=== PATIENT | male | born 1955 | race Two or more races ===

== ENCOUNTER 2018-09-20 17:44 | Inpatient (IN) | payer MEDICAID ==
[~2018-09-20] VITALS: Ht 198.1 cm; Wt 104.8 kg
[2018-09-20] MEDS ORDERED: Sodium Chloride 3,300 ML IVLG ONE (18:00)
[2018-09-20 18:09] VITALS: BP 121/63
[2018-09-20 18:38] LABS: ANION GAP 14 mmol/L (5-15); BLOOD UREA NITROGEN 14 mg/dL (7-18); CARBON DIOXIDE 19 MMOL/L (21-32); CHLORIDE 97 MMOL/L (98-107); POTASSIUM 4.2 MMOL/L (3.5-5.1); SODIUM 130 MMOL/L (136-145)
[2018-09-20 18:46] LABS: HEMATOCRIT 41.1 % (42.0-52.0); HEMOGLOBIN 14.2 G/DL (14.2-18.0); MEAN CORPUSCULAR VOLUME 92 FL (80-99); PLATELET COUNT 80 K/UL (150-450); RED BLOOD COUNT 4.49 M/UL (4.70-6.10); RED CELL DISTRIBUTION WIDTH 12.5 % (11.6-14.8); WHITE BLOOD COUNT 12.8 K/UL (4.8-10.8)
--- NOTE | 2018-09-20 18:51 | Emergency Room Report ---
History of Present Illness General Chief Complaint: Generalized Weakness Source: Patient, EMS Present Illness HPI This patient states that for the past 3 days he has had diarrhea. He also has a history of cirrhosis. He states that this was secondary to a history of alcohol abuse but he no longer drinks alcohol. He denies travel. He denies pain. He denies fever or chills. He states he has also had generalized weakness. He denies chest pain or shortness of breath. He has no other complaints. Allergies: Coded Allergies: No Known Allergies (Unverified , 09/20/18) Patient History Past Medical History: see triage record, DM, other - cirrhosis Social History: Denies: smoking, alcohol use, drug use Reviewed Nursing Documentation: PMH: Agreed; PSxH: Agreed Nursing Documentation-PMH Past Medical History: No History, Except For Hx Diabetes: Yes Review of Systems All Other Systems: negative except mentioned in HPI Physical Exam Vital Signs Date Time Temp Pulse Resp B/P (MAP) Pulse Ox O2 Delivery O2 Flow Rate FiO2 09/20/18 17:41 100.0 96 16 126/70 (88) 98 Room Air Sp02 EP Interpretation: reviewed, normal General Appearance: no apparent distress, alert, GCS 15, non-toxic Head: normocephalic, atraumatic Eyes: bilateral eye normal inspection, bilateral eye PERRL ENT: hearing grossly normal, normal pharynx, no angioedema, normal voice Neck: full range of motion, supple/symm/no masses Respiratory: chest non-tender, lungs clear, normal breath sounds, no respiratory distress, no retraction, no accessory muscle use, speaking full sentences Cardiovascular #1: no edema, tachycardia Gastrointestinal: normal bowel sounds, non tender, soft, non-distended, no guarding, no rebound Rectal: deferred Musculoskeletal: back normal, gait/station normal, normal range of motion, non- tender Neurologic: alert, oriented x3, responsive, motor strength/tone normal, sensory intact, speech normal Psychiatric: judgement/insight normal, memory normal, mood/affect normal, no suicidal/homicidal ideation Skin: normal color, no rash, warm/dry, well hydrated Medical Decision Making Diagnostic Impression: Primary Impression: Gastroenteritis Additional Impressions: Dehydration Fever Lactic acid acidosis Hyponatremia ER Course This patient presents with recurrent diarrhea and generalized weakness. At baseline he is chronically ill with liver cirrhosis and is high risk for serious bacterial infection. He does not localize to his abdomen and is not tender so I have a low suspicion for spontaneous bacterial peritonitis. He had a low-grade fever with a temp of 100. He was given aggressive IV fluid resuscitation and broad-spectrum antibiotics and admitted for further evaluation and treatment by internal medicine. Laboratory Tests Test 09/20/18 18:05 09/20/18 18:35 Sodium Level 130 MMOL/L (136-145) L Potassium Level 4.2 MMOL/L (3.5-5.1) Chloride Level 97 MMOL/L (98-107) L Carbon Dioxide Level 19 MMOL/L (21-32) L Anion Gap 14 mmol/L (5-15) Blood Urea Nitrogen 14 mg/dL (7-18) Creatinine 1.0 MG/DL (0.55-1.30) Estimate Glomerular Filtration Rate > 60 mL/min (>60) Glucose Level 110 MG/DL (74-106) H Lactic Acid Level 4.10 mmol/L (0.4-2.0) H Calcium Level 9.0 MG/DL (8.5-10.1) Total Bilirubin 4.0 MG/DL (0.2-1.0) H Direct Bilirubin 1.2 MG/DL (0.0-0.3) H Aspartate Amino Transferase (AST) 192 U/L (15-37) H Alanine Aminotransferase (ALT) 192 U/L (12-78) H Alkaline Phosphatase 93 U/L (46-116) Total Creatine Kinase 251 U/L (26-308) Creatine Kinase MB 1.5 NG/ML (0.0-3.6) Creatine Kinase MB Relative Index 0.5 Troponin I 0.003 ng/mL (0.000-0.056) Total Protein 7.9 G/DL (6.4-8.2) Albumin 3.1 G/DL (3.4-5.0) L Globulin 4.8 g/dL Albumin/Globulin Ratio 0.6 (1.0-2.7) L White Blood Count 12.8 K/UL (4.8-10.8) H Red Blood Count 4.49 M/UL (4.70-6.10) L Hemoglobin 14.2 G/DL (14.2-18.0) Hematocrit 41.1 % (42.0-52.0) L Mean Corpuscular Volume 92 FL (80-99) Mean Corpuscular Hemoglobin 31.7 PG (27.0-31.0) H Mean Corpuscular Hemoglobin Concent 34.6 G/DL (32.0-36.0) Red Cell Distribution Width 12.5 % (11.6-14.8) Platelet Count 80 K/UL (150-450) L Mean Platelet Volume 8.1 FL (6.5-10.1) Neutrophils (%) (Auto) % (45.0-75.0) Lymphocytes (%) (Auto) % (20.0-45.0) Monocytes (%) (Auto) % (1.0-10.0) Eosinophils (%) (Auto) % (0.0-3.0) Basophils (%) (Auto) % (0.0-2.0) Neutrophils % (Manual) Pending Lymphocytes % (Manual) Pending Platelet Estimate Pending Platelet Morphology Pending Microbiology Date/Time Source Procedure Growth Status 09/20/18 18:05 Nasal Nares - Final Complete 09/20/18 18:05 Nasal Nares - Final Complete EKG Diagnostic Results Rate: normal Rhythm: NSR ST Segments: no acute changes Rhythm Strip Diag. Results EP Interpretation: yes Rate: 100's Rhythm: no PVC's, no ectopy, other - S.tachycardia Chest X-Ray Diagnostic Results Chest X-Ray Diagnostic Results : Chest X-Ray Ordered: Yes # of Views/Limited/Complete: 1 View Indication: Other EP Interpretation: Yes Interpretation: no consolidation, no effusion, no pneumothorax, no acute cardiopulmonary disease Impression: No acute disease Last Vital Signs Date Time Temp Pulse Resp B/P (MAP) Pulse Ox O2 Delivery O2 Flow Rate FiO2 09/20/18 18:09 101.8 97 24 121/63 96 Room Air Disposition: ADMITTED INPATIENT Condition: Serious Referrals: NON PHYSICIAN (PCP) Chikis Barrera DO Sep 20, 2018 18:51
[2018-09-20 18:52] LABS: ALANINE AMINOTRANSFERASE 192 U/L (12-78); ALBUMIN 3.1 G/DL (3.4-5.0); ALBUMIN/GLOBULIN RATIO 0.6 (1.0-2.7); ALKALINE PHOSPHATASE 93 U/L (46-116); ASPARTATE AMINO TRANSFERASE 192 U/L (15-37); CKMB 1.5 NG/ML (0.0-3.6); CREATINE KINASE 251 U/L (26-308)
[2018-09-20 18:53] LABS: BILIRUBIN,DIRECT 1.2 MG/DL (0.0-0.3)
[2018-09-20] MEDS ORDERED: Cefepime HCl 2 GM in NS 110 ML IV ONE (19:30)
[2018-09-20 20:02] VITALS: BP 128/82
[2018-09-20 20:04] LABS: APPEARANCE,URINE CLEAR; BILIRUBIN, URINE 2+ (NEGATIVE); COLOR,URINE BROWN; GLUCOSE, URINE (UA) NEGATIVE (NEGATIVE); KETONES,URINE 2+ (NEGATIVE); LEUKOCYTE ESTERASE ,URINE 1+ (NEGATIVE); NITRITE,URINE POSITIVE (NEGATIVE); PH,URINE 5 (4.5-8.0); PROTEIN,URINE 1+ (NEGATIVE); UROBILINOGEN,URINE 4 MG/DL (0.0-1.0)
[2018-09-20 21:29] VITALS: BP 130/78
[2018-09-20 23:00] VITALS: BP 139/72
[2018-09-20] MEDS: Vancomycin 1.25gm Premix 275 ML IVPB SCH (23:11)
[2018-09-21] VITALS: BP 139/72
[2018-09-21 04:00] VITALS: BP 109/67
[2018-09-21 05:39] LABS: HEMOGLOBIN 12.9 G/DL (14.2-18.0); MEAN CORPUSCULAR VOLUME 93 FL (80-99); PLATELET COUNT 58 K/UL (150-450); RED BLOOD COUNT 3.97 M/UL (4.70-6.10); RED CELL DISTRIBUTION WIDTH 12.4 % (11.6-14.8); WHITE BLOOD COUNT 8.1 K/UL (4.8-10.8)
[2018-09-21 06:22] LABS: ANION GAP 10 mmol/L (5-15); BLOOD UREA NITROGEN 15 mg/dL (7-18); CALCIUM 8.1 MG/DL (8.5-10.1); CARBON DIOXIDE 21 MMOL/L (21-32); CHLORIDE 102 MMOL/L (98-107); CREATININE 0.8 MG/DL (0.55-1.30); POTASSIUM 3.1 MMOL/L (3.5-5.1); SODIUM 133 MMOL/L (136-145)
[2018-09-21 08:00] VITALS: BP 107/63
--- NOTE | 2018-09-21 08:30 | History and Physical Report ---
DATE OF ADMISSION: 09/20/2018 REASON FOR ADMISSION: 1. Diarrhea. 2. Sepsis. HISTORY OF PRESENT ILLNESS: The patient is a 63-year-old gentleman, who presented to the emergency room complaining of three to five days of diarrhea, which had progressively gotten worsened. The patient does have a history of known cirrhosis secondary to alcohol abuse. The patient denies drinking any alcohol. States he has been feeling weak and tired and had recent infection causing his diarrhea and was treated, but then has since returned. ALLERGIES: No known drug allergies. PAST MEDICAL HISTORY: 1. Cirrhosis. 2. Questionable diabetes. 3. Diarrhea, infectious in nature. SOCIAL HISTORY: The patient used to drink alcohol. Denies any current alcohol, tobacco, or illicit drug use. FAMILY HISTORY: Positive for diabetes and hypertension. REVIEW OF SYSTEMS: NEUROLOGIC: The patient denies headache, change in vision, syncope or presyncopal episodes. CARDIOVASCULAR: No current chest pain, palpitations, or angina. PULMONARY: No difficulty breathing, productive cough sputum. GASTROINTESTINAL/GENITOURINARY: The patient complaining of diarrhea, progressive in nature. No nausea or vomiting. ENDOCRINOLOGY: No night sweats, fevers, or chills. LABORATORY DATA: Laboratories dated September 21, 2018, sodium 133, potassium 3.1, creatinine 0.8. AST and ALT 192 respectively for each. Troponin 0. White cell count 12.8, hemoglobin 12.9, and platelet count 58. PHYSICAL EXAMINATION: VITAL SIGNS: Blood pressure 129/57, respiratory rate 20, 94% oxygen saturation on room air, pulse 94, and temperature 99.0. GENERAL: The patient awake, alert, in no overt distress. HEENT: Extraocular muscles intact. No lymphadenopathy noted. CARDIOVASCULAR: S1, S2. No rubs or gallops. PULMONARY: Clear to auscultation bilaterally. No rales, rhonchi or wheezes. ABDOMEN: Distended, nontender. Positive fluid . EXTREMITIES: 1+ edema. ASSESSMENT AND PLAN: 1. Hyponatremia secondary to cirrhosis, mild in nature. Continue IV fluids, has improved to 133. 2. Sepsis with elevated WBC, could be an infectious diarrhea. C. diff has been ordered. Antibiotics will be given. An Infectious Disease consult for further evaluation and management. 3. Hypokalemia. We will replace IV secondary to diarrhea. 4. Volume depletion. We will continue IV fluids. 5. DVT prophylaxis with SCDs. Fidel Segundo MD DR: LAKHWINDER JOB#: [id number] CC:
[2018-09-21] MEDS ORDERED: Thiamine 100mg tab ORAL SCH (09:00)
--- NOTE | 2018-09-21 10:24 | GI Initial Consult Note ---
History of Present Illness General Date patient seen: Sep 21, 2018 Time patient seen: 10:16 Reason for Hospitalization: Generalized Weakness Referring physician: BRANDON Reason for Consultation: Diarrhea Present Illness HPI This patient states that for the past 3 days he has had diarrhea. He also has a history of cirrhosis. He states that this was secondary to a history of alcohol abuse but he no longer drinks alcohol. He denies travel. He denies pain. He denies fever or chills. He states he has also had generalized weakness. He denies chest pain or shortness of breath. He has no other complaints. GI consulted for reported diarrhea. Patient seen, awake alert and oriented x4 no apparent distress with no active signs or symptoms of nausea vomiting. The patient reported severe diarrhea for approximately 3 to 4 days. The patient denied any travel or recent changes in dietary habits. Has a history of alcoholic cirrhosis, his last drink was over 2 years ago. Aside from the most recent episode of diarrhea, the patient reported diarrhea previous times as well. In addition, the patient did report occasional melena. He states his last colonoscopy was only 2 weeks ago which was done at [facility] with unremarkable findings. The patient states he has no history of upper endoscopy. Labs reviewed; no leukocytosis, hemoglobin of 12.9, abnormal LFTs as noted. Med list reviewed/reconciled: Yes Allergies: Coded Allergies: No Known Allergies (Unverified , 09/20/18) Patient History History Provided By: Patient, Medical Record PMH Narrative Past Medical History: see triage record, DM, other - cirrhosis Social History: Denies: smoking, alcohol use, drug use Reviewed Nursing Documentation: PMH: Agreed; PSxH: Agreed Nursing Documentation-PM Past Medical History: No History, Except For Hx Diabetes: Yes Social History: Reports: alcohol use - Prior history Review of Systems All Other Systems: negative except mentioned in HPI Physical Exam Vital Signs Date Time Temp Pulse Resp B/P (MAP) Pulse Ox O2 Delivery O2 Flow Rate FiO2 09/20/18 17:41 100.0 96 16 126/70 (88) 98 Room Air Sp02 EP Interpretation: reviewed, normal Labs Laboratory Tests Test 09/20/18 18:05 09/20/18 18:35 09/20/18 19:30 09/21/18 03:15 Sodium Level 130 MMOL/L (136-145) L 133 MMOL/L (136-145) L Potassium Level 4.2 MMOL/L (3.5-5.1) 3.1 MMOL/L (3.5-5.1) L Chloride Level 97 MMOL/L (98-107) L 102 MMOL/L (98-107) Carbon Dioxide Level 19 MMOL/L (21-32) L 21 MMOL/L (21-32) Anion Gap 14 mmol/L (5-15) 10 mmol/L (5-15) Blood Urea Nitrogen 14 mg/dL (7-18) 15 mg/dL (7-18) Creatinine 1.0 MG/DL (0.55-1.30) 0.8 MG/DL (0.55-1.30) Estimat Glomerular Filtration Rate > 60 mL/min (>60) > 60 mL/min (>60) Glucose Level 110 MG/DL (74-106) H 133 MG/DL (74-106) H Lactic Acid Level 4.10 mmol/L (0.4-2.0) H 3.50 mmol/L (0.66-2.22) H Calcium Level 9.0 MG/DL (8.5-10.1) 8.1 MG/DL (8.5-10.1) L Total Bilirubin 4.0 MG/DL (0.2-1.0) H Direct Bilirubin 1.2 MG/DL (0.0-0.3) H Aspartate Amino Transf (AST/SGOT) 192 U/L (15-37) H Alanine Aminotransferase (ALT/SGPT) 192 U/L (12-78) H Alkaline Phosphatase 93 U/L (46-116) Total Creatine Kinase 251 U/L (26-308) Creatine Kinase MB 1.5 NG/ML (0.0-3.6) Creatine Kinase MB Relative Index 0.5 Troponin I 0.003 ng/mL (0.000-0.056) Total Protein 7.9 G/DL (6.4-8.2) Albumin 3.1 G/DL (3.4-5.0) L Globulin 4.8 g/dL Albumin/Globulin Ratio 0.6 (1.0-2.7) L White Blood Count 12.8 K/UL (4.8-10.8) H 8.1 K/UL (4.8-10.8) Red Blood Count 4.49 M/UL (4.70-6.10) L 3.97 M/UL (4.70-6.10) L Hemoglobin 14.2 G/DL (14.2-18.0) 12.9 G/DL (14.2-18.0) L Hematocrit 41.1 % (42.0-52.0) L 37.0 % (42.0-52.0) L Mean Corpuscular Volume 92 FL (80-99) 93 FL (80-99) Mean Corpuscular Hemoglobin 31.7 PG (27.0-31.0) H 32.4 PG (27.0-31.0) H Mean Corpuscular Hemoglobin Concent 34.6 G/DL (32.0-36.0) 34.8 G/DL (32.0-36.0) Red Cell Distribution Width 12.5 % (11.6-14.8) 12.4 % (11.6-14.8) Platelet Count 80 K/UL (150-450) L 58 K/UL (150-450) L Mean Platelet Volume 8.1 FL (6.5-10.1) 11.3 FL (6.5-10.1) H Neutrophils (%) (Auto) % (45.0-75.0) % (45.0-75.0) Lymphocytes (%) (Auto) % (20.0-45.0) % (20.0-45.0) Monocytes (%) (Auto) % (1.0-10.0) % (1.0-10.0) Eosinophils (%) (Auto) % (0.0-3.0) % (0.0-3.0) Basophils (%) (Auto) % (0.0-2.0) % (0.0-2.0) Differential Total Cells Counted 100 100 Neutrophils % (Manual) 80 % (45-75) H 75 % (45-75) Lymphocytes % (Manual) 5 % (20-45) L 4 % (20-45) L Monocytes % (Manual) 13 % (1-10) H 8 % (1-10) Eosinophils % (Manual) 1 % (0-3) 1 % (0-3) Basophils % (Manual) 0 % (0-2) 0 % (0-2) Band Neutrophils 1 % (0-8) 12 % (0-8) H Platelet Estimate Decreased L Decreased L Platelet Morphology Normal Normal Red Blood Cell Morphology Normal Normal Urine Color Brown Urine Appearance Clear Urine pH 5 (4.5-8.0) Urine Specific [place] 1.025 (1.005-1.035) Urine Protein 1+ (NEGATIVE) H Urine Glucose (UA) Negative (NEGATIVE) Urine Ketones 2+ (NEGATIVE) H Urine Blood 2+ (NEGATIVE) H Urine Nitrite Positive (NEGATIVE) H Urine Bilirubin 2+ (NEGATIVE) H Urine Ictotest Negative (NEGATIVE) Urine Urobilinogen 4 MG/DL (0.0-1.0) H Urine Leukocyte Esterase 1+ (NEGATIVE) H Urine RBC 5-10 /HPF (0 - 0) H Urine WBC 2-4 /HPF (0 - 0) Urine Squamous Epithelial Cells Few /LPF (NONE/OCC) Urine Bacteria Few /HPF (NONE) Urine Hyaline Casts 30-40 /LPF (NONE) H Urine Mucus Many /LPF (NONE/OCC) H General Appearance: well appearing, no apparent distress, alert Head: normocephalic EENT: PERRL/EOMI, normal ENT inspection Neck: supple Respiratory: normal breath sounds, no respiratory distress Cardiovascular: normal rate Gastrointestinal: normal inspection, non tender, soft, normal bowel sounds, non -distended, other - Abdomen is soft, nondistended, nontender Rectal: deferred Genitourinary: deferred Musculoskeletal: normal inspection, back normal Neurologic: normal inspection, alert, oriented x3, responsive Psychiatric: normal inspection, judgement/insight normal, memory normal Skin: normal inspection, normal color, no rash, warm/dry, palpation normal, well hydrated Lymphatic: normal inspection, no adenopathy Current Medications Current Medications Medications (Trade) Dose Ordered Sig/Kaylah Route PRN Reason Start Time Stop Time Status Last Admin Dose Admin Dextrose (Dextrose 50%) 25 ml Q30M PRN IV Hypoglycemia 09/20/18 22:15 10/20/18 22:14 Dextrose (Dextrose 50%) 50 ml Q30M PRN IV Hypoglycemia 09/20/18 22:15 10/20/18 22:14 Famotidine (Pepcid) 40 mg DAILY ORAL 09/21/18 09:00 10/21/18 08:59 09/21/18 09:22 Folic Acid (Folate) 1 mg DAILY ORAL 09/21/18 09:00 10/21/18 08:59 09/21/18 09:22 Ondansetron HCl (Zofran) 4 mg Q6H PRN IVP Nausea & Vomiting 09/20/18 22:15 10/20/18 22:14 09/21/18 00:51 Sodium Chloride 1,000 ml @ 75 mls/hr [id number] IV 09/20/18 22:15 10/20/18 22:14 09/20/18 22:58 Thiamine HCl (Vitamin B1) 100 mg DAILY ORAL 09/21/18 09:00 10/21/18 08:59 09/21/18 09:21 Vancomycin HCl/ Dextrose 275 ml @ 183.333 mls/hr Q12H IVPB 09/20/18 23:00 09/25/18 22:59 09/20/18 23:11 GI: Plan Problems: (1) Melena (2) Lactic acid acidosis (3) Hyponatremia (4) Gastroenteritis (5) Fever (6) Dehydration (7) Sepsis Plan History of cirrhosis Recent colonoscopy within 2 weeks EGD scheduled for tomorrow. - NPO @ NH. - hold all blood thinners Stool studies to rule out infectious diarrhea Prophylactic antibiotics IV p.o. hydration plus electrolyte correction Obtain abdominal ultrasound Hepatitis panel OB stool to rule out GI bleed Follow labs Discussed with Dr. Wall. Thank you for this patient referral, we will follow. The patient was seen and examined at bedside and all new and available data was reviewed in the patients chart. I agree with the above findings, impression and plan. (Patient seen earlier today. Signature stamp does not reflect patient encounter time.). - MD Rhiannon JeronimoHavasu Regional Medical CenterNitesh INSTRUMENT REPAIR SUPERVISOR Sep 21, 2018 10:24
[2018-09-21] MEDS: Vancomycin 1.25gm Premix 275 ML IVPB SCH ×2 (11:25→21:13)
[2018-09-21 12:00] VITALS: BP 108/63
--- NOTE | 2018-09-21 12:10 | Diagnostic Imaging Report ---
Indication: Dyspnea Comparison: None A single view chest radiograph was obtained. Findings: Mild pulmonary vascular congestion suspected. Heart is normal size. Bones are unremarkable. No pleural effusion seen. IMPRESSION: Prominent vascularity. Suspect mild CHF. Correlate clinically
[2018-09-21] MEDS ORDERED: Vancomycin oral 125mg/2.5ml ORAL SCH (13:00)
[2018-09-21] MEDS ORDERED: metroNIDAZOLE 500mg tab ORAL SCH (14:00)
--- NOTE | 2018-09-21 14:01 | Infectious Diseases Prog Note ---
Assessment/Plan Assessment/Plan Full consult to follow: sepsis ? infectious diarrhea leukocytosis fevers vancomycin and ceftriaxone check cultures and stool studies monitor labs IVF GI f/u thank you Subjective Allergies: Coded Allergies: No Known Allergies (Unverified , 09/20/18) Objective Vital Signs Last 24 Hour Vital Signs Date Time Temp Pulse Resp B/P (MAP) Pulse Ox O2 Delivery O2 Flow Rate FiO2 09/21/18 12:00 Room Air 09/21/18 12:00 100.8 85 24 108/63 (78) 96 09/21/18 08:00 94 09/21/18 08:00 98.1 93 26 107/63 (78) 93 09/21/18 08:00 Room Air 09/21/18 04:00 Room Air 09/21/18 04:00 94 09/21/18 04:00 99.0 90 20 109/67 (81) 94 09/21/18 00:00 99.0 93 24 139/72 (94) 97 09/21/18 00:00 91 09/21/18 00:00 91 09/21/18 00:00 Room Air 09/20/18 23:00 Room Air 09/20/18 23:00 99.0 93 24 139/72 (94) 97 09/20/18 23:00 Room Air 09/20/18 23:00 Room Air 09/20/18 22:35 99.7 82 18 130/78 99 Room Air 09/20/18 22:19 99.7 09/20/18 21:29 99.7 82 18 130/78 99 Room Air 09/20/18 20:02 101.1 101 28 128/82 99 Room Air 09/20/18 18:09 101.8 97 24 121/63 96 Room Air 09/20/18 18:09 97 24 Room Air 09/20/18 17:41 100.0 96 16 126/70 (88) 98 Room Air Height (Feet): 6 Height (Inches): 0.00 Weight (Pounds): 230 Microbiology Date/Time Source Procedure Growth Status 09/20/18 18:05 Nasal Nares - Final Complete 09/20/18 18:05 Nasal Nares - Final Complete Laboratory Tests Test 09/20/18 18:05 09/20/18 18:35 09/20/18 19:30 09/21/18 03:15 Sodium Level 130 MMOL/L (136-145) L 133 MMOL/L (136-145) L Potassium Level 4.2 MMOL/L (3.5-5.1) 3.1 MMOL/L (3.5-5.1) L Chloride Level 97 MMOL/L (98-107) L 102 MMOL/L (98-107) Carbon Dioxide Level 19 MMOL/L (21-32) L 21 MMOL/L (21-32) Anion Gap 14 mmol/L (5-15) 10 mmol/L (5-15) Blood Urea Nitrogen 14 mg/dL (7-18) 15 mg/dL (7-18) Creatinine 1.0 MG/DL (0.55-1.30) 0.8 MG/DL (0.55-1.30) Estimat Glomerular Filtration Rate > 60 mL/min (>60) > 60 mL/min (>60) Glucose Level 110 MG/DL (74-106) H 133 MG/DL (74-106) H Lactic Acid Level 4.10 mmol/L (0.4-2.0) H 3.50 mmol/L (0.66-2.22) H Calcium Level 9.0 MG/DL (8.5-10.1) 8.1 MG/DL (8.5-10.1) L Total Bilirubin 4.0 MG/DL (0.2-1.0) H Direct Bilirubin 1.2 MG/DL (0.0-0.3) H Aspartate Amino Transf (AST/SGOT) 192 U/L (15-37) H Alanine Aminotransferase (ALT/SGPT) 192 U/L (12-78) H Alkaline Phosphatase 93 U/L (46-116) Total Creatine Kinase 251 U/L (26-308) Creatine Kinase MB 1.5 NG/ML (0.0-3.6) Creatine Kinase MB Relative Index 0.5 Troponin I 0.003 ng/mL (0.000-0.056) Total Protein 7.9 G/DL (6.4-8.2) Albumin 3.1 G/DL (3.4-5.0) L Globulin 4.8 g/dL Albumin/Globulin Ratio 0.6 (1.0-2.7) L White Blood Count 12.8 K/UL (4.8-10.8) H 8.1 K/UL (4.8-10.8) Red Blood Count 4.49 M/UL (4.70-6.10) L 3.97 M/UL (4.70-6.10) L Hemoglobin 14.2 G/DL (14.2-18.0) 12.9 G/DL (14.2-18.0) L Hematocrit 41.1 % (42.0-52.0) L 37.0 % (42.0-52.0) L Mean Corpuscular Volume 92 FL (80-99) 93 FL (80-99) Mean Corpuscular Hemoglobin 31.7 PG (27.0-31.0) H 32.4 PG (27.0-31.0) H Mean Corpuscular Hemoglobin Concent 34.6 G/DL (32.0-36.0) 34.8 G/DL (32.0-36.0) Red Cell Distribution Width 12.5 % (11.6-14.8) 12.4 % (11.6-14.8) Platelet Count 80 K/UL (150-450) L 58 K/UL (150-450) L Mean Platelet Volume 8.1 FL (6.5-10.1) 11.3 FL (6.5-10.1) H Neutrophils (%) (Auto) % (45.0-75.0) % (45.0-75.0) Lymphocytes (%) (Auto) % (20.0-45.0) % (20.0-45.0) Monocytes (%) (Auto) % (1.0-10.0) % (1.0-10.0) Eosinophils (%) (Auto) % (0.0-3.0) % (0.0-3.0) Basophils (%) (Auto) % (0.0-2.0) % (0.0-2.0) Differential Total Cells Counted 100 100 Neutrophils % (Manual) 80 % (45-75) H 75 % (45-75) Lymphocytes % (Manual) 5 % (20-45) L 4 % (20-45) L Monocytes % (Manual) 13 % (1-10) H 8 % (1-10) Eosinophils % (Manual) 1 % (0-3) 1 % (0-3) Basophils % (Manual) 0 % (0-2) 0 % (0-2) Band Neutrophils 1 % (0-8) 12 % (0-8) H Platelet Estimate Decreased L Decreased L Platelet Morphology Normal Normal Red Blood Cell Morphology Normal Normal Urine Color Brown Urine Appearance Clear Urine pH 5 (4.5-8.0) Urine Specific [place] 1.025 (1.005-1.035) Urine Protein 1+ (NEGATIVE) H Urine Glucose (UA) Negative (NEGATIVE) Urine Ketones 2+ (NEGATIVE) H Urine Blood 2+ (NEGATIVE) H Urine Nitrite Positive (NEGATIVE) H Urine Bilirubin 2+ (NEGATIVE) H Urine Ictotest Negative (NEGATIVE) Urine Urobilinogen 4 MG/DL (0.0-1.0) H Urine Leukocyte Esterase 1+ (NEGATIVE) H Urine RBC 5-10 /HPF (0 - 0) H Urine WBC 2-4 /HPF (0 - 0) Urine Squamous Epithelial Cells Few /LPF (NONE/OCC) Urine Bacteria Few /HPF (NONE) Urine Hyaline Casts 30-40 /LPF (NONE) H Urine Mucus Many /LPF (NONE/OCC) H Current Medications Medications (Trade) Dose Ordered Sig/Kaylah Route PRN Reason Start Time Stop Time Status Last Admin Dose Admin Dextrose (Dextrose 50%) 25 ml Q30M PRN IV Hypoglycemia 09/20/18 22:15 10/20/18 22:14 Dextrose (Dextrose 50%) 50 ml Q30M PRN IV Hypoglycemia 09/20/18 22:15 10/20/18 22:14 Famotidine (Pepcid) 40 mg DAILY ORAL 09/21/18 09:00 10/21/18 08:59 09/21/18 09:22 Folic Acid (Folate) 1 mg DAILY ORAL 09/21/18 09:00 10/21/18 08:59 09/21/18 09:22 Ondansetron HCl (Zofran) 4 mg Q6H PRN IVP Nausea & Vomiting 09/20/18 22:15 10/20/18 22:14 09/21/18 00:51 Sodium Chloride 1,000 ml @ 75 mls/hr [id number] IV 09/20/18 22:15 10/20/18 22:14 09/21/18 13:01 Thiamine HCl (Vitamin B1) 100 mg DAILY ORAL 09/21/18 09:00 10/21/18 08:59 09/21/18 09:21 Vancomycin HCl (Firvanq) 125 mg FOUR TIMES A DAY ORAL 09/21/18 13:00 09/28/18 12:59 09/21/18 13:01 Vancomycin HCl/ Dextrose 275 ml @ 183.333 mls/hr Q12H IVPB 09/20/18 23:00 09/25/18 22:59 09/21/18 11:25 Lisha Aguirre MD Sep 21, 2018 14:01
--- NOTE | 2018-09-21 15:00 | Cardiology Report ---
APPROVED REPORT EKG Measurement Heart [id number] Normal sinus rhythm Normal ECG
[2018-09-21] MEDS ORDERED: cefTRIAXone 1 GM in D5W 50 ML IVPB SCH (15:30)
[2018-09-21 17:00] VITALS: BP 118/70
[2018-09-21] MEDS: Vancomycin oral 125mg/2.5ml ORAL SCH ×2 (17:55→21:12)
--- NOTE | 2018-09-21 18:45 | History and Physical Report ---
DATE OF ADMISSION: 09/20/2018 HISTORY OF PRESENT ILLNESS: This is a 63-year-old male with a history of liver cirrhosis. He had been discharged from [facility] recently with lactulose for his liver cirrhosis. He now presents with diarrhea. The patient states that the diarrheal frequency has suddenly increased. He reports taking lactulose at home. PAST HISTORY: Liver cirrhosis and questionable diabetes. HOME MEDICATIONS: Lactulose. ALLERGIES: None. REVIEW OF SYSTEMS: Denies any headaches, hematemesis, melena, or hematochezia. PHYSICAL EXAMINATION: GENERAL: Reveals a 63-year-old male. VITAL SIGNS: There is initial blood pressure of 109/60 and heart rate 74. He has been afebrile. HEENT: Unremarkable. LUNGS: Clear breath sounds bilaterally. ABDOMEN: Soft. LABORATORY DATA: Lab testing shows hemoglobin 12.9 now, white cells 8100, and platelet count 58,00. Creatinine is 0.8. Sodium is 133 and potassium 3.1. Lactic acid 4.1 now 3.5. Calcium is 8.1. AST and ALT are both elevated. Albumin 3.1. Urinalysis shows nitrites and few wbc's. Imaging studies none. IMPRESSION: 1. Hypoalbuminemia. 2. Malnutrition. 3. Liver cirrhosis. 4. Diarrhea. 5. Diabetes, questionable. DISCUSSION: Admitted to the hospital. We will start empiric antibiotics. I will also start oral vancomycin. Consult GI. Intravenous fluids. Discontinue lactulose. Check stool for culture and C. diff. We will follow carefully. Rajesh Myers M.D. DR: JUSTINE JOB#: [id number] CC:
[2018-09-21 20:00] VITALS: BP 126/66
[2018-09-21] MEDS: metroNIDAZOLE 500mg tab ORAL SCH (21:12)
[2018-09-22] VITALS (9 sets, daily range): BP systolic 126–151; BP diastolic 70–89
[2018-09-22] MEDS: metroNIDAZOLE 500mg tab ORAL SCH ×3 (06:22→21:36)
[2018-09-22] MEDS ORDERED: Propofol 200mg/20ml IV ONE (07:00)
[2018-09-22] MEDS ORDERED: Lidocaine 1% MPF 10mg/ml 5ml ONE (07:00)
--- NOTE | 2018-09-22 07:02 | Nephrology Progress Note ---
Assessment/Plan Assessment/Plan: A/P 1) Hyponatremia- due to cirrhosis - stable, AM labs pending 2) Hypokalemia- will replace prn as AM labs pending 3) Diarrhea- per GI mgmt. Colonoscopy today 4) Dehydration- resolved. DC IVFs Subjective Date patient seen: Sep 22, 2018 Time patient seen: 07:00 Allergies: Coded Allergies: No Known Allergies (Unverified , 09/20/18) Subjective Patient in bathroom Objective Last 24 Hour Vital Signs Date Time Temp Pulse Resp B/P (MAP) Pulse Ox O2 Delivery O2 Flow Rate FiO2 09/22/18 04:00 99.5 89 16 127/74 (91) 95 09/22/18 00:00 98.3 88 18 126/70 (88) 95 09/22/18 00:00 Room Air 09/21/18 20:00 Room Air 09/21/18 20:00 99.3 88 18 126/66 (86) 95 09/21/18 17:00 99.5 84 20 118/70 (86) 95 09/21/18 16:00 83 09/21/18 16:00 Room Air 09/21/18 12:00 Room Air 09/21/18 12:00 100.8 85 24 108/63 (78) 96 09/21/18 11:31 90 09/21/18 08:00 94 09/21/18 08:00 98.1 93 26 107/63 (78) 93 09/21/18 08:00 Room Air Intake and Output 09/21/18 09/22/18 19:00 07:00 Intake Total 1110.416 ml 950.000 ml Output Total 450 ml Balance 1110.416 ml 500.000 ml Intake Oral 250 ml IV Total 860.416 ml 950.000 ml Output Urine Total 450 ml # Voids 1 # Bowel Movements 1 Laboratory Tests 09/22/18 05:15: White Blood Count [Pending], Red Blood Count [Pending], Hemoglobin [Pending], Hematocrit [Pending], Mean Corpuscular Volume [Pending], Mean Corpuscular Hemoglobin [Pending], Mean Corpuscular Hemoglobin Concent [Pending], Red Cell Distribution Width [Pending], Platelet Count [Pending], Mean Platelet Volume [ Pending], Neutrophils (%) (Auto) [Pending], Lymphocytes (%) (Auto) [Pending], Monocytes (%) (Auto) [Pending], Eosinophils (%) (Auto) [Pending], Basophils (%) (Auto) [Pending], Reticulocyte Count [Pending], Prothrombin Time [Pending], Prothromb Time International Ratio [Pending], Activated Partial Thromboplast Time [Pending], Sodium Level [Pending], Potassium Level [Pending], Chloride Level [Pending], Carbon Dioxide Level [Pending], Blood Urea Nitrogen [Pending], Creatinine [Pending], Estimat Glomerular Filtration Rate [Pending], Glucose Level [Pending], Calcium Level [Pending], Phosphorus Level [Pending], Magnesium Level [Pending], Iron Level [Pending], Unsaturated Iron Binding [Pending], Ferritin [Pending], Total Bilirubin [Pending], Aspartate Amino Transf (AST/SGOT ) [Pending], Alanine Aminotransferase (ALT/SGPT) [Pending], Alkaline Phosphatase [Pending], Total Protein [Pending], Albumin [Pending], Globulin [ Pending], Carcinoembryonic Antigen [Pending], Vitamin B12 Level [Pending], Folate [Pending], Thyroid Stimulating Hormone (TSH) [Pending], Free Thyroxine [ Pending] Height (Feet): 6 Height (Inches): 6.00 Weight (Pounds): 231 Fidel Segundo MD Sep 22, 2018 07:02
[2018-09-22 07:03] LABS: HEMATOCRIT 36.2 % (42.0-52.0); HEMOGLOBIN 12.7 G/DL (14.2-18.0); MEAN CORPUSCULAR VOLUME 93 FL (80-99); PLATELET COUNT 66 K/UL (150-450); RED CELL DISTRIBUTION WIDTH 12.7 % (11.6-14.8); WHITE BLOOD COUNT 9.8 K/UL (4.8-10.8)
--- NOTE | 2018-09-22 07:09 | Anethesia Preoperative Eval ---
Anesthesia Pre-op PMH/ROS General Date of Evaluation: Sep 22, 2018 Time of Evaluation: 07:06 Anesthesiologist: augustina ASA Score: ASA 3 Mallampati Score Class I : Soft palate, uvula, fauces, pillars visible Class II: Soft palate, uvula, fauces visible Class III: Soft palate, base of uvula visible Class IV: Only hard plate visible Mallampati Classification: Class II Surgeon: janine Diagnosis: gastroenteritis Surgical Procedure: egd Anesthesia History: none Social History: current smoker Family History: no anesthesia problems Allergies: Coded Allergies: No Known Allergies (Unverified , 09/20/18) Medications: see eMAR Patient NPO?: Yes Past Medical History Gastrointestinal/Genitourinary: Reports: other - melena, gastroenteritis Endocrine: Reports: DM Hematology/Immune: Reports: other - sepsis, fever Anesthesia Pre-op Phys. Exam Physician Exam Last Vital Signs Date Time Temp Pulse Resp B/P (MAP) Pulse Ox O2 Delivery O2 Flow Rate FiO2 09/22/18 04:00 99.5 89 16 127/74 (91) 95 09/22/18 00:00 Room Air Constitutional: NAD Neurologic: CN 2-12 intact Cardiovascular: RRR Respiratory: CTA Gastrointestinal: S/NT/ND Airway Exam Mallampati Score: Class II MO: limited Neck: flexible TMD: 2fb ROM: limited Teeth: missing Anesthesia Pre-op A/P Labs Labs Test 09/20/18 18:05 09/20/18 18:35 09/20/18 19:30 09/21/18 03:15 Sodium Level 130 MMOL/L (136-145) 133 MMOL/L (136-145) Potassium Level 4.2 MMOL/L (3.5-5.1) 3.1 MMOL/L (3.5-5.1) Chloride Level 97 MMOL/L (98-107) 102 MMOL/L (98-107) Carbon Dioxide Level 19 MMOL/L (21-32) 21 MMOL/L (21-32) Anion Gap 14 mmol/L (5-15) 10 mmol/L (5-15) Blood Urea Nitrogen 14 mg/dL (7-18) 15 mg/dL (7-18) Creatinine 1.0 MG/DL (0.55-1.30) 0.8 MG/DL (0.55-1.30) Estimat Glomerular Filtration Rate > 60 mL/min (>60) > 60 mL/min (>60) Glucose Level 110 MG/DL (74-106) 133 MG/DL (74-106) Lactic Acid Level 4.10 mmol/L (0.4-2.0) 3.50 mmol/L (0.66-2.22) Calcium Level 9.0 MG/DL (8.5-10.1) 8.1 MG/DL (8.5-10.1) Total Bilirubin 4.0 MG/DL (0.2-1.0) Direct Bilirubin 1.2 MG/DL (0.0-0.3) Aspartate Amino Transf (AST/SGOT) 192 U/L (15-37) Alanine Aminotransferase (ALT/SGPT) 192 U/L (12-78) Alkaline Phosphatase 93 U/L (46-116) Total Creatine Kinase 251 U/L (26-308) Creatine Kinase MB 1.5 NG/ML (0.0-3.6) Creatine Kinase MB Relative Index 0.5 Troponin I 0.003 ng/mL (0.000-0.056) Total Protein 7.9 G/DL (6.4-8.2) Albumin 3.1 G/DL (3.4-5.0) Globulin 4.8 g/dL Albumin/Globulin Ratio 0.6 (1.0-2.7) White Blood Count 12.8 K/UL (4.8-10.8) 8.1 K/UL (4.8-10.8) Red Blood Count 4.49 M/UL (4.70-6.10) 3.97 M/UL (4.70-6.10) Hemoglobin 14.2 G/DL (14.2-18.0) 12.9 G/DL (14.2-18.0) Hematocrit 41.1 % (42.0-52.0) 37.0 % (42.0-52.0) Mean Corpuscular Volume 92 FL (80-99) 93 FL (80-99) Mean Corpuscular Hemoglobin 31.7 PG (27.0-31.0) 32.4 PG (27.0-31.0) Mean Corpuscular Hemoglobin Concent 34.6 G/DL (32.0-36.0) 34.8 G/DL (32.0-36.0) Red Cell Distribution Width 12.5 % (11.6-14.8) 12.4 % (11.6-14.8) Platelet Count 80 K/UL (150-450) 58 K/UL (150-450) Mean Platelet Volume 8.1 FL (6.5-10.1) 11.3 FL (6.5-10.1) Neutrophils (%) (Auto) % (45.0-75.0) % (45.0-75.0) Lymphocytes (%) (Auto) % (20.0-45.0) % (20.0-45.0) Monocytes (%) (Auto) % (1.0-10.0) % (1.0-10.0) Eosinophils (%) (Auto) % (0.0-3.0) % (0.0-3.0) Basophils (%) (Auto) % (0.0-2.0) % (0.0-2.0) Differential Total Cells Counted 100 100 Neutrophils % (Manual) 80 % (45-75) 75 % (45-75) Lymphocytes % (Manual) 5 % (20-45) 4 % (20-45) Monocytes % (Manual) 13 % (1-10) 8 % (1-10) Eosinophils % (Manual) 1 % (0-3) 1 % (0-3) Basophils % (Manual) 0 % (0-2) 0 % (0-2) Band Neutrophils 1 % (0-8) 12 % (0-8) Platelet Estimate Decreased Decreased Platelet Morphology Normal Normal Red Blood Cell Morphology Normal Normal Urine Color Brown Urine Appearance Clear Urine pH 5 (4.5-8.0) Urine Specific [place] 1.025 (1.005-1.035) Urine Protein 1+ (NEGATIVE) Urine Glucose (UA) Negative (NEGATIVE) Urine Ketones 2+ (NEGATIVE) Urine Blood 2+ (NEGATIVE) Urine Nitrite Positive (NEGATIVE) Urine Bilirubin 2+ (NEGATIVE) Urine Ictotest Negative (NEGATIVE) Urine Urobilinogen 4 MG/DL (0.0-1.0) Urine Leukocyte Esterase 1+ (NEGATIVE) Urine RBC 5-10 /HPF (0 - 0) Urine WBC 2-4 /HPF (0 - 0) Urine Squamous Epithelial Cells Few /LPF (NONE/OCC) Urine Bacteria Few /HPF (NONE) Urine Hyaline Casts 30-40 /LPF (NONE) Urine Mucus Many /LPF (NONE/OCC) Test 09/22/18 05:15 White Blood Count 9.8 K/UL (4.8-10.8) Red Blood Count 3.90 M/UL (4.70-6.10) Hemoglobin 12.7 G/DL (14.2-18.0) Hematocrit 36.2 % (42.0-52.0) Mean Corpuscular Volume 93 FL (80-99) Mean Corpuscular Hemoglobin 32.6 PG (27.0-31.0) Mean Corpuscular Hemoglobin Concent 35.1 G/DL (32.0-36.0) Red Cell Distribution Width 12.7 % (11.6-14.8) Platelet Count 66 K/UL (150-450) Mean Platelet Volume 9.6 FL (6.5-10.1) Neutrophils (%) (Auto) % (45.0-75.0) Lymphocytes (%) (Auto) % (20.0-45.0) Monocytes (%) (Auto) % (1.0-10.0) Eosinophils (%) (Auto) % (0.0-3.0) Basophils (%) (Auto) % (0.0-2.0) Prothrombin Time 15.0 SEC (9.30-11.50) Prothromb Time International Ratio 1.4 (0.9-1.1) Activated Partial Thromboplast Time 35 SEC (23-33) Risk Assessment & Plan Assessment: asa3 Plan: mac Status Change Before Surgery: No Pre-Antibiotics Drug: Usha Carrillo MD Sep 22, 2018 07:09
[2018-09-22] MEDS ORDERED: DiphenhydrAMINE 50mg/ml Inj IVP PRN (07:15)
[2018-09-22] MEDS ORDERED: fentaNYL 100 mcg/2 mL IV PRN (07:15)
[2018-09-22] MEDS ORDERED: Atropine Inj 1mg/10ml Syr IV PRN (07:15)
[2018-09-22] MEDS ORDERED: Midazolam 2mg/2ml Inj IVP PRN (07:15)
[2018-09-22 07:36] LABS: INR 1.4 (0.9-1.1)
[2018-09-22] MEDS ORDERED: NS 500ML IVPB ONE (07:50)
[2018-09-22 07:53] LABS: % IRON SATURATION 25 % (15-50); IRON 39 ug/dL (50-175); TOTAL IRON BINDING CAPACITY 157 ug/dL (250-450)
[2018-09-22 07:59] LABS: PHOSPHORUS 1.5 MG/DL (2.5-4.9)
--- NOTE | 2018-09-22 08:01 | Pre-Procedure Note/Attestation ---
Pre-Procedure Note/Attestation Complete Prior to Procedure Planned Procedure: not applicable Procedure Narrative: egd Indications for Procedure Pre-Operative Diagnosis: anemia Attestation I attest that I discussed the nature of the procedure; its benefits; risks and complications; and alternatives (and the risks and benefits of such alternatives ), prior to the procedure, with the patient (or the patient's legal commercial sales representative). I attest that, if there was a reasonable possibility of needing a blood transfusion, the patient (or the patient's legal commercial sales representative) was given the [facility] standardized written summary, pursuant to the Kamran Ulen Blood Safety Act ([place] Health and Safety Code # 1645, as amended). I attest that I re-evaluated the patient just prior to the surgery and that there has been no change in the patient's H&P, except as documented below: Malachi Wall MD Sep 22, 2018 08:01
[2018-09-22 08:05] LABS: ALANINE AMINOTRANSFERASE 112 U/L (12-78); ALBUMIN 2.5 G/DL (3.4-5.0); ALBUMIN/GLOBULIN RATIO 0.7 (1.0-2.7); ALKALINE PHOSPHATASE 75 U/L (46-116); ANION GAP 6 mmol/L (5-15); ASPARTATE AMINO TRANSFERASE 82 U/L (15-37); BILIRUBIN,TOTAL 2.3 MG/DL (0.2-1.0); BLOOD UREA NITROGEN 11 mg/dL (7-18); CALCIUM 8.6 MG/DL (8.5-10.1); CARBON DIOXIDE 25 MMOL/L (21-32); CHLORIDE 101 MMOL/L (98-107); CREATININE 0.6 MG/DL (0.55-1.30); FERRITIN 540 NG/ML (8-388); POTASSIUM 3.4 MMOL/L (3.5-5.1); SODIUM 132 MMOL/L (136-145)
[2018-09-22 08:08] LABS: BILIRUBIN,DIRECT 0.9 MG/DL (0.0-0.3)
--- NOTE | 2018-09-22 08:18 | Endoscopy Procedure Note ---
Endoscopy Procedure Note General Indication for Procedure: cirrhosis Procedures Performed: EGD Operative Findings/Diagnosis: varices Specimen: yes Pt Tolerated Procedure Well: Yes Estimated Blood Loss: none Anesthesia Anesthesiologist: raul Anesthesia: MAC Inserted Devices Implant(s) used?: No GI Core Measures 50 yrs or older w/o bx or poly: Not Applicable 10yrs. F/U recommended: Not Applicable Malachi Wall MD Sep 22, 2018 08:18
--- NOTE | 2018-09-22 08:42 | Immediate Post-Op Evaluation ---
Immediate Post-Op Evalulation Immediate Post-Op Evalulation Procedure: egd w/ banding and bx Date of Evaluation: Sep 22, 2018 Time of Evaluation: 08:35 IV Fluids: 250ml 0.9ns Blood Products: none Estimated Blood Loss: negligible Blood Pressure Systolic: 145 Blood Pressure Diastolic: 89 Pulse Rate: 89 Respiratory Rate: 18 O2 Sat by Pulse Oximetry: 98 Temperature (Fahrenheit): 98.0 Pain Score (1-10): 0 Nausea: No Vomiting: No Complications none Patient Status: awake, reacts, patent Hydration Status: adequate Drug: Usha Carrillo MD Sep 22, 2018 08:42
--- NOTE | 2018-09-22 09:13 | 48 Hour Post Anesthesia Eval ---
Post Anesthesia Evaluation Procedure: egd w/ banding and bx Date of Evaluation: Sep 22, 2018 Time of Evaluation: 08:37 Blood Pressure Systolic: 145 0: 88 Pulse Rate: 88 Respiratory Rate: 18 Temperature (Fahrenheit): 98.0 O2 Sat by Pulse Oximetry: 98 Airway: patent Nausea: No Vomiting: No Pain Intensity: 0 Hydration Status: adequate Cardiopulmonary Status: stable Mental Status/LOC: patient returned to baseline Post-Anesthesia Complications: none Follow-up care needed: N/A Usha Garner MD Sep 22, 2018 09:13
[2018-09-22] MEDS: Vancomycin oral 125mg/2.5ml ORAL SCH ×4 (09:14→21:36)
[2018-09-22] MEDS: Thiamine 100mg tab ORAL SCH (09:14)
--- NOTE | 2018-09-22 09:45 | Pulmonology Progress Note ---
Assessment/Plan Assessment/Plan 1. Hypoalbuminemia. 2. Malnutrition. 3. Liver cirrhosis. 4. Diarrhea. 5. Diabetes, questionable. DISCUSSION: Continue empiric antibiotics.Seen by GI. Intravenous fluids. Discontinue lactulose. I will follow carefully. Subjective Interval Events: s/p colonoscopy Constitutional: Reports: no symptoms HEENT: Repors: no symptoms Respiratory: Reports: no symptoms Cardiovascular: Reports: no symptoms Gastrointestinal/Abdominal: Reports: no symptoms Genitourinary: Reports: no symptoms Allergies: Coded Allergies: No Known Allergies (Unverified , 09/20/18) Objective Last 24 Hour Vital Signs Date Time Temp Pulse Resp B/P (MAP) Pulse Ox O2 Delivery O2 Flow Rate FiO2 09/22/18 09:13 88 18 98 09/22/18 09:04 89 18 98 09/22/18 08:38 97.6 88 18 126/79 96 Room Air 09/22/18 08:30 92 17 138/79 96 Nasal Cannula 3 09/22/18 08:23 98.0 89 18 145/89 98 Nasal Cannula 3 09/22/18 04:00 99.5 89 16 127/74 (91) 95 09/22/18 00:00 98.3 88 18 126/70 (88) 95 09/22/18 00:00 Room Air 09/21/18 20:00 Room Air 09/21/18 20:00 99.3 88 18 126/66 (86) 95 09/21/18 17:00 99.5 84 20 118/70 (86) 95 09/21/18 16:00 83 09/21/18 16:00 Room Air 09/21/18 12:00 Room Air 09/21/18 12:00 100.8 85 24 108/63 (78) 96 09/21/18 11:31 90 Intake and Output 09/21/18 09/22/18 19:00 07:00 Intake Total 1110.416 ml 950.000 ml Output Total 450 ml Balance 1110.416 ml 500.000 ml Intake Oral 250 ml IV Total 860.416 ml 950.000 ml Output Urine Total 450 ml # Voids 1 # Bowel Movements 1 General Appearance: no acute distress HEENT: normocephalic Respiratory/Chest: chest wall non-tender, lungs clear Cardiovascular: normal peripheral pulses Abdomen: normal bowel sounds Microbiology Date/Time Source Procedure Growth Status 09/20/18 18:05 Nasal Nares - Final Complete 09/20/18 18:05 Nasal Nares - Final Complete Laboratory Tests 09/22/18 05:15: White Blood Count 9.8, Red Blood Count 3.90L, Hemoglobin 12.7L, Hematocrit 36.2L , Mean Corpuscular Volume 93, Mean Corpuscular Hemoglobin 32.6H, Mean Corpuscular Hemoglobin Concent 35.1, Red Cell Distribution Width 12.7, Platelet Count 66L, Mean Platelet Volume 9.6, Neutrophils (%) (Auto) , Lymphocytes (%) ( Auto) , Monocytes (%) (Auto) , Eosinophils (%) (Auto) , Basophils (%) (Auto) , Neutrophils % (Manual) [Pending], Lymphocytes % (Manual) [Pending], Platelet Estimate [Pending], Platelet Morphology [Pending], Reticulocyte Count [Pending] , Prothrombin Time 15.0H, Prothromb Time International Ratio 1.4H, Activated Partial Thromboplast Time 35H, Sodium Level 132L, Potassium Level 3.4L, Chloride Level 101, Carbon Dioxide Level 25, Anion Gap 6, Blood Urea Nitrogen 11 , Creatinine 0.6, Estimat Glomerular Filtration Rate > 60, Glucose Level 110H, Calcium Level 8.6, Phosphorus Level 1.5L, Magnesium Level 1.4L, Iron Level 39L, Total Iron Binding Capacity 157L, Percent Iron Saturation 25, Unsaturated Iron Binding 118, Ferritin 540H, Total Bilirubin 2.3H, Direct Bilirubin 0.9H, Aspartate Amino Transf (AST/SGOT) 82H, Alanine Aminotransferase (ALT/SGPT) 112H , Alkaline Phosphatase 75, Total Protein 6.3L, Albumin 2.5L, Globulin 3.8, Albumin/Globulin Ratio 0.7L, Carcinoembryonic Antigen [Pending], Vitamin B12 Level 857, Folate 7.3L, Thyroid Stimulating Hormone (TSH) 2.652, Free Thyroxine 1.50H Current Medications Medications (Trade) Dose Ordered Sig/Kaylah Route PRN Reason Start Time Stop Time Status Last Admin Dose Admin Al Hydroxide/Mg Hydroxide (Mylanta) 15 ml Q1H PRN ORAL gi upset 09/22/18 07:15 09/22/18 18:00 Atropine Sulfate (Atropine) 0.5 mg Q5M PRN IV bpm less than 45 09/22/18 07:15 09/22/18 18:00 Ceftriaxone Sodium 1 gm/ Dextrose 50 ml @ 100 mls/hr Q24H IVPB 09/22/18 15:30 09/28/18 15:29 Dextrose (Dextrose 50%) 25 ml Q30M PRN IV Hypoglycemia 09/21/18 16:15 10/20/18 22:14 Dextrose (Dextrose 50%) 50 ml Q30M PRN IV Hypoglycemia 09/21/18 16:15 10/20/18 22:14 Diphenhydramine HCl (Benadryl) 25 mg Q15M PRN IVP Itching 09/22/18 07:15 09/22/18 18:00 Fentanyl Citrate (Sublimaze 100 mcg/2 mL) 25 mcg Q10M PRN IV Moderate Pain (Pain Scale 4-6) 09/22/18 07:15 09/22/18 18:00 Folic Acid (Folate) 1 mg DAILY ORAL 09/22/18 09:00 10/21/18 08:59 09/22/18 09:14 Hydralazine HCl (Apresoline) 5 mg Q30M PRN IV SBP>160 OR___/DBP>90 OR___ 09/22/18 07:15 09/22/18 18:00 Magnesium Sulfate 100 ml @ 100 mls/hr Q1H IVPB 09/22/18 09:45 09/22/18 11:44 Metronidazole (Flagyl) 500 mg Q8HR ORAL 09/21/18 22:00 09/28/18 13:59 09/22/18 06:22 Midazolam HCl (Versed 2mg/2ml vial) 1 mg Q15M PRN IVP For Anxiety 09/22/18 07:15 09/22/18 18:00 Ondansetron HCl (Zofran) 4 mg Q1H PRN IVP Nausea & Vomiting 09/22/18 07:15 09/22/18 18:00 Ondansetron HCl (Zofran) 4 mg Q6H PRN IVP Nausea & Vomiting 09/21/18 16:15 10/20/18 22:14 Pantoprazole (Protonix) 40 mg DAILY ORAL 09/22/18 09:00 10/22/18 08:59 09/22/18 09:14 Sodium Phosphate 30 mm/Sodium Chloride 285 ml @ 47.5 mls/hr ONCE IVPB 09/22/18 11:00 09/22/18 17:00 Thiamine HCl (Vitamin B1) 100 mg DAILY ORAL 09/22/18 09:00 10/21/18 08:59 09/22/18 09:14 Vancomycin HCl (Firvanq) 125 mg FOUR TIMES A DAY ORAL 09/21/18 18:00 09/28/18 12:59 09/22/18 09:14 Vancomycin HCl/ Dextrose 275 ml @ 183.333 mls/hr Q12H IVPB 09/21/18 23:00 09/25/18 22:59 09/21/18 21:13 Rajesh Myers MD Sep 22, 2018 09:45
[2018-09-22] MEDS ORDERED: Sodium Phosphate 30 MM in NS 275 ML IVPB SCH (11:00)
[2018-09-22] MEDS: Vancomycin 1.25gm Premix 275 ML IVPB SCH ×3 (11:00→18:28)
--- NOTE | 2018-09-22 11:59 | Diagnostic Imaging Report ---
Indication: Abnormal liver function tests Technique: Rutherford-scale and duplex images of the upper abdomen were obtained. Doppler interrogation of the pancreatic and hepatic vessels Comparison: none Findings: Gallbladder demonstrates a gallstone. Gallbladder wall is thickened, measuring 7 mm thick. Sonographic Tomlinson's sign is negative. Common bile duct measures 3 mm in diameter. No intrahepatic biliary ductal dilatation. Liver demonstrates coarsened echogenicity and slight surface nodularity. Small amount of ascites is seen overlying the anterior left hepatic lobe. Portal vein and hepatic veins are patent. Pancreas is obscured by bowel gas. The spleen is enlarged, measuring 15.6 cm long axis dimension Left kidney measures 13.5 cm in length. Right kidney measures 13.3 cm length. Both kidneys demonstrate normal echogenicity. There is no hydronephrosis. There is a small left renal cyst . Non-aneurysmal abdominal aorta . Impression: Evidence of hepatic cirrhosis, with coarsened echogenicity and surface nodularity Trace ascites Cholelithiasis. Gallbladder wall thickening is probably secondary to the hemodynamic derangements related to the hepatocellular disease. However, possibility of acute cholecystitis should also be considered consider hepatobiliary nuclear scan if there is high clinical suspicion Splenomegaly Incidental finding small left renal cyst Note nonvisualization of the pancreas
--- NOTE | 2018-09-22 15:15 | Procedure Note ---
DATE OF PROCEDURE: 09/22/2018 SURGEON: Malachi Wall M.D. PROCEDURE: Upper endoscopy with biopsy and banding. ANESTHESIA: Per Dr. Lagunas. INSTRUMENT: Olympus adult flexible upper endoscope. INDICATIONS: Cirrhosis. REASON FOR PROCEDURE: The procedure, risks, benefits, and possible consequences, including hemorrhage, aspiration, perforation and infection, and alternative treatments, were explained to the patient/legal guardian by Dr. Malachi Wall and the patient/legal guardian understood and accepted these risks. DESCRIPTION OF PROCEDURE: After informed consent was obtained the patient was adequately sedated, Olympus upper endoscope was advanced from mouth into the second portion of duodenum and retroflexion was performed in the stomach. The patient had evidence of portal hypertensive gastropathy, diffuse gastritis. Random biopsy from antrum was obtained to rule out H. pylori infection. The patient had evidence of 4 columns of grade 4 distal esophageal varices. No evidence of gastric varices. At this time, the scope was retrieved. Banding device was placed. A total of 7 bands were placed in the distal esophagus. SUMMARY OF FINDINGS: 1. Esophageal varices, status post banding x7. 2. Gastritis, status post biopsy. 3. Portal hypertensive gastropathy. RECOMMENDATIONS: 1. Followup pathology. 2. Start clear liquid diet and advance as tolerated. 3. The patient will need a repeat endoscopy and banding in 4 to 6 weeks. I want to thank Dr. Myers for this kind referral. Malachi Wall M.D. DR: BOBBY JOB#: [id number] CC: Rajesh Myers M.D.; Fax#: [phone]
--- NOTE | 2018-09-22 15:30 | Procedure Note ---
DATE OF PROCEDURE: 09/22/2018 NOTE: CANCELLED DICTATION: SURGEON: Malachi Wall M.D. PROCEDURE: Upper endoscopy with biopsy and banding. ANESTHESIA: Per Dr. Lagunas. INSTRUMENT: Olympus adult flexible upper endoscope. INDICATIONS: Cirrhosis. REASON FOR PROCEDURE: The procedure, risks, benefits, and possible consequences, including hemorrhage, aspiration, perforation and infection, and alternative treatments, were explained to the patient/legal guardian by Dr. Malachi Wall and the patient/legal guardian understood and accepted these risks. DESCRIPTION OF PROCEDURE: After informed consent was obtained and the patient was adequately sedately, Olympus upper endoscope was advanced from mouth into second portion of the duodenum and retroflexion was performed in the stomach. Malachi Wall M.D. DR: BOBBY JOB#: [id number] CC:
[2018-09-22] MEDS: cefTRIAXone 1 GM in D5W 50 ML IVPB SCH (16:48)
--- NOTE | 2018-09-22 16:59 | Infectious Diseases Prog Note ---
Assessment/Plan Assessment/Plan Full consult dictated: sepsis, elevated lactic acid level ? infectious diarrhea, ? c.diff. leukocytosis fevers vancomycin and ceftriaxone, flagyl, po vancomycin started check cultures and stool studies monitor labs IVF GI f/u will f/u Subjective Constitutional: Denies: fever HEENT: Denies: congestion Respiratory: Denies: shortness of breath Cardiovascular: Denies: chest pain Gastrointestinal/Abdominal: Reports: diarrhea; Denies: nausea, vomiting Genitourinary: Denies: dysuria, hematuria Allergies: Coded Allergies: No Known Allergies (Unverified , 09/20/18) Objective Vital Signs Last 24 Hour Vital Signs Date Time Temp Pulse Resp B/P (MAP) Pulse Ox O2 Delivery O2 Flow Rate FiO2 09/22/18 16:00 99.5 89 16 127/74 (91) 95 09/22/18 12:00 98.8 87 20 147/85 (105) 95 09/22/18 09:13 88 18 98 09/22/18 09:04 89 18 98 09/22/18 09:00 Room Air 09/22/18 08:45 97.6 85 20 142/81 (101) 95 09/22/18 08:38 97.6 88 18 126/79 96 Room Air 09/22/18 08:30 92 17 138/79 96 Nasal Cannula 3 09/22/18 08:23 98.0 89 18 145/89 98 Nasal Cannula 3 09/22/18 04:00 99.5 89 16 127/74 (91) 95 09/22/18 00:00 98.3 88 18 126/70 (88) 95 09/22/18 00:00 Room Air 09/21/18 20:00 Room Air 09/21/18 20:00 99.3 88 18 126/66 (86) 95 09/21/18 17:00 99.5 84 20 118/70 (86) 95 Height (Feet): 6 Height (Inches): 6.00 Weight (Pounds): 231 General Appearance: no acute distress HEENT: normocephalic, atraumatic, anicteric Respiratory/Chest: lungs clear, normal breath sounds, no respiratory distress Cardiovascular: normal rate, regular rhythm, no gallop/murmur, no JVD Abdomen: normal bowel sounds, soft, non tender, no organomegaly Microbiology Date/Time Source Procedure Growth Status 09/20/18 18:05 Nasal Nares - Final Complete 09/20/18 18:05 Nasal Nares - Final Complete Laboratory Tests Test 09/22/18 05:15 09/22/18 10:15 White Blood Count 9.8 K/UL (4.8-10.8) Red Blood Count 3.90 M/UL (4.70-6.10) L Hemoglobin 12.7 G/DL (14.2-18.0) L Hematocrit 36.2 % (42.0-52.0) L Mean Corpuscular Volume 93 FL (80-99) Mean Corpuscular Hemoglobin 32.6 PG (27.0-31.0) H Mean Corpuscular Hemoglobin Concent 35.1 G/DL (32.0-36.0) Red Cell Distribution Width 12.7 % (11.6-14.8) Platelet Count 66 K/UL (150-450) L Mean Platelet Volume 9.6 FL (6.5-10.1) Neutrophils (%) (Auto) % (45.0-75.0) Lymphocytes (%) (Auto) % (20.0-45.0) Monocytes (%) (Auto) % (1.0-10.0) Eosinophils (%) (Auto) % (0.0-3.0) Basophils (%) (Auto) % (0.0-2.0) Differential Total Cells Counted 100 Neutrophils % (Manual) 81 % (45-75) H Lymphocytes % (Manual) 8 % (20-45) L Monocytes % (Manual) 9 % (1-10) Eosinophils % (Manual) 2 % (0-3) Basophils % (Manual) 0 % (0-2) Band Neutrophils 0 % (0-8) Platelet Estimate Decreased L Platelet Morphology Normal Red Blood Cell Morphology Normal Reticulocyte Count 3.1 % (0.5-2.0) H Prothrombin Time 15.0 SEC (9.30-11.50) H Prothromb Time International Ratio 1.4 (0.9-1.1) H Activated Partial Thromboplast Time 35 SEC (23-33) H Sodium Level 132 MMOL/L (136-145) L Potassium Level 3.4 MMOL/L (3.5-5.1) L Chloride Level 101 MMOL/L (98-107) Carbon Dioxide Level 25 MMOL/L (21-32) Anion Gap 6 mmol/L (5-15) Blood Urea Nitrogen 11 mg/dL (7-18) Creatinine 0.6 MG/DL (0.55-1.30) Estimat Glomerular Filtration Rate > 60 mL/min (>60) Glucose Level 110 MG/DL (74-106) H Calcium Level 8.6 MG/DL (8.5-10.1) Phosphorus Level 1.5 MG/DL (2.5-4.9) L Magnesium Level 1.4 MG/DL (1.8-2.4) L Iron Level 39 ug/dL (50-175) L Total Iron Binding Capacity 157 ug/dL (250-450) L Percent Iron Saturation 25 % (15-50) Unsaturated Iron Binding 118 ug/dL (112-346) Ferritin 540 NG/ML (8-388) H Total Bilirubin 2.3 MG/DL (0.2-1.0) H Direct Bilirubin 0.9 MG/DL (0.0-0.3) H Aspartate Amino Transf (AST/SGOT) 82 U/L (15-37) H Alanine Aminotransferase (ALT/SGPT) 112 U/L (12-78) H Alkaline Phosphatase 75 U/L (46-116) Total Protein 6.3 G/DL (6.4-8.2) L Albumin 2.5 G/DL (3.4-5.0) L Globulin 3.8 g/dL Albumin/Globulin Ratio 0.7 (1.0-2.7) L Carcinoembryonic Antigen Pending Vitamin B12 Level 857 PG/ML (193-986) Folate 7.3 NG/ML (8.6-58.9) L Thyroid Stimulating Hormone (TSH) 2.652 uiU/mL (0.358-3.740) Free Thyroxine 1.50 NG/DL (0.76-1.46) H Vancomycin Level Trough 4.8 ug/mL (5.0-12.0) L Current Medications Medications (Trade) Dose Ordered Sig/Kaylah Route PRN Reason Start Time Stop Time Status Last Admin Dose Admin Al Hydroxide/Mg Hydroxide (Mylanta) 15 ml Q1H PRN ORAL gi upset 09/22/18 07:15 09/22/18 18:00 Atropine Sulfate (Atropine) 0.5 mg Q5M PRN IV bpm less than 45 09/22/18 07:15 09/22/18 18:00 Ceftriaxone Sodium 1 gm/ Dextrose 50 ml @ 100 mls/hr Q24H IVPB 09/22/18 15:30 09/28/18 15:29 09/22/18 16:48 Dextrose (Dextrose 50%) 25 ml Q30M PRN IV Hypoglycemia 09/21/18 16:15 10/20/18 22:14 Dextrose (Dextrose 50%) 50 ml Q30M PRN IV Hypoglycemia 09/21/18 16:15 10/20/18 22:14 Diphenhydramine HCl (Benadryl) 25 mg Q15M PRN IVP Itching 09/22/18 07:15 09/22/18 18:00 Fentanyl Citrate (Sublimaze 100 mcg/2 mL) 25 mcg Q10M PRN IV Moderate Pain (Pain Scale 4-6) 09/22/18 07:15 09/22/18 18:00 Folic Acid (Folate) 1 mg DAILY ORAL 09/22/18 09:00 10/21/18 08:59 09/22/18 09:14 Hydralazine HCl (Apresoline) 5 mg Q30M PRN IV SBP>160 OR___/DBP>90 OR___ 09/22/18 07:15 09/22/18 18:00 Metronidazole (Flagyl) 500 mg Q8HR ORAL 09/21/18 22:00 09/28/18 13:59 09/22/18 13:33 Midazolam HCl (Versed 2mg/2ml vial) 1 mg Q15M PRN IVP For Anxiety 09/22/18 07:15 09/22/18 18:00 Ondansetron HCl (Zofran) 4 mg Q1H PRN IVP Nausea & Vomiting 09/22/18 07:15 09/22/18 18:00 Ondansetron HCl (Zofran) 4 mg Q6H PRN IVP Nausea & Vomiting 09/21/18 16:15 10/20/18 22:14 Pantoprazole (Protonix) 40 mg DAILY ORAL 09/22/18 09:00 10/22/18 08:59 09/22/18 09:14 Sodium Phosphate 30 mm/Sodium Chloride 285 ml @ 47.5 mls/hr ONCE IVPB 09/22/18 11:00 09/22/18 17:00 09/22/18 11:48 Thiamine HCl (Vitamin B1) 100 mg DAILY ORAL 09/22/18 09:00 10/21/18 08:59 09/22/18 09:14 Vancomycin HCl (Firvanq) 125 mg FOUR TIMES A DAY ORAL 09/21/18 18:00 09/28/18 12:59 09/22/18 13:32 Vancomycin HCl/ Dextrose 275 ml @ 183.333 mls/hr Q8H IVPB 09/22/18 11:00 09/27/18 10:59 09/22/18 11:48 Lisha Aguirre MD Sep 22, 2018 16:59
[2018-09-23] VITALS: BP 133/84
--- NOTE | 2018-09-23 00:45 | Consultation ---
DATE OF CONSULTATION: 09/22/2018 INFECTIOUS DISEASE CONSULTATION CONSULTING PHYSICIAN: Lisha Aguirre M.D. ATTENDING PHYSICIAN: Rajesh Myers M.D. REFERRING PHYSICIAN: Fidel Fernandez M.D. REASON FOR CONSULTATION: Sepsis, fevers, leukocytosis, diarrhea, gastroenteritis, and possible infectious diarrhea. CHIEF COMPLAINT: The patient's chief complaint coming in to the hospital is dehydration and gastroenteritis. HISTORY OF PRESENT ILLNESS: This is a 63-year-old male, who comes in to [facility]. The patient was noted to have diarrhea for several days and fevers, leukocytosis, and possible sepsis. Infectious Diseases consult was requested. Stool studies were sent. The patient was placed on vancomycin, Rocephin, and Flagyl. He was also started on p.o. vancomycin. Stool studies again are pending. Blood cultures are pending also. Infectious Disease consultation is requested for antibiotic management in this patient with sepsis. PAST MEDICAL HISTORY: The patient's past medical history includes the history of the following. The patient has a past medical history of liver cirrhosis and possible diabetes. He is also anemic. No history of hypertension. MEDICATIONS: Upon reviewing the MAR, he is on the following medications. He is on vancomycin, Rocephin, Flagyl, and p.o. vancomycin. He is on folic acid, thiamine, pantoprazole, fentanyl, metaxalone, Zofran, hydralazine, diphenhydramine, and atropine. Outside medications were noted and reconciliated. ALLERGIES: No known drug allergies. SOCIAL HISTORY: Negative for smoking, alcohol, or drug abuse. FAMILY HISTORY: Noncontributory. REVIEW OF SYSTEMS: CONSTITUTIONAL: He has generalized fatigue. No focal weakness. He came in with fevers and chills. HEAD AND NECK: No head pain or neck pain. No neck stiffness. PULMONARY: No congestion, shortness of breath, or mild secretions. CARDIAC: No chest pain. GASTROINTESTINAL: No nausea or vomiting. He came in with dehydration. He did have diarrhea, maybe some abdominal discomfort but no van pain. NEUROLOGIC: No seizures. SKIN: No rash. EXTREMITIES: No extremity pain. PHYSICAL EXAMINATION: VITAL SIGNS: Temperature is 99.5, pulse 89, respiratory rate 16, blood pressure 127/74, and saturation 95%. T-max is 101.8. GENERAL: Alert and responsive. HEAD AND NECK: Oral exam, no thrush. Eye exam, no icterus. Neck is supple. No JVD. Normocephalic. LUNGS: Clear bilaterally. No rhonchi or rales. HEART: Regular. No obvious gallop or murmur. ABDOMEN: Soft. Positive bowel sounds. No rebound. SKIN: No rash. MUSCULOSKELETAL: No effusion. Legs are without cellulitis. PERIPHERAL VASCULAR: No cyanosis. GENITOURINARY: No [place]gett. LINES SITES: Without phlebitis. NEUROLOGIC: Intact and nonfocal. LABORATORY DATA: Laboratory data is as follows: Creatinine 0.6. White count 9.8 and hemoglobin 12.7. White count on admission was 12.8. Cultures are pending. Influenza screen is negative. IMAGING STUDIES: Chest x-ray shows what looks like congestive heart failure. ASSESSMENT AND PLAN: 1. The patient has sepsis, elevated white count, fevers, SIRS criteria. The patient also has had tachycardia, in addition, to temperature of 101. Heart rate was as high as 101 also. The patient also had elevated lactic acid level. Lactic acid level was 3.5. We will continue empiric antibiotics of vancomycin, Rocephin, and Flagyl for sepsis, leukocytosis, and fevers. Chest x-ray had possible congestive heart failure. UA had only 2 to 4 white blood cells. Continue vancomycin, Rocephin, and Flagyl for sepsis. Check cultures and laboratories. The patient also could have infectious diarrhea versus viral gastroenteritis versus bacterial diarrhea rule out C. diff. The patient also has been started on p.o. vancomycin and Rocephin should cover infectious diarrhea. Continue antibiotics vancomycin, Rocephin, Flagyl and p.o. vancomycin pending final workup. Check stool studies and cultures. Continue intravenous fluid hydration. 2. Anemia. 3. Cirrhosis. 4. Possible diabetes. 5. No history of hypertension. 6. Follow up on blood cultures. 7. Diabetes treatment per primary. 8. The patient is status post EGD. 9. Cirrhosis. 10. No known drug allergies. 11. Social history is negative. 12. Family history is noncontributory. 13. MAR was noted. 14. Case was discussed with RN. 15. Continue treatment per primary consultants. Lisha Aguirre M.D. DR: LESA JOB#: [id number] CC:
[2018-09-23] MEDS: Vancomycin 1.25gm Premix 275 ML IVPB SCH (02:59)
[2018-09-23 04:00] VITALS: BP 142/80
[2018-09-23] MEDS: metroNIDAZOLE 500mg tab ORAL SCH ×3 (05:05→21:21)
[2018-09-23 06:38] LABS: ALANINE AMINOTRANSFERASE 97 U/L (12-78); ALBUMIN 2.3 G/DL (3.4-5.0); ALBUMIN/GLOBULIN RATIO 0.6 (1.0-2.7); ALKALINE PHOSPHATASE 77 U/L (46-116); ANION GAP 8 mmol/L (5-15); ASPARTATE AMINO TRANSFERASE 72 U/L (15-37); BLOOD UREA NITROGEN 6 mg/dL (7-18); CALCIUM 7.5 MG/DL (8.5-10.1); CARBON DIOXIDE 25 MMOL/L (21-32); CHLORIDE 100 MMOL/L (98-107); CREATININE 0.6 MG/DL (0.55-1.30); SODIUM 133 MMOL/L (136-145)
[2018-09-23 06:55] LABS: BILIRUBIN,DIRECT 0.9 MG/DL (0.0-0.3)
--- NOTE | 2018-09-23 07:02 | Nephrology Progress Note ---
Assessment/Plan Assessment/Plan: A/P 1) Hyponatremia- due to cirrhosis - stable, AM labs pending 2) Hypokalemia- will replace today po 3) Diarrhea- per GI mgmt. S/P EGD 4) Dehydration- resolved. 50 HypoMg/Phos- replaced yesterday Subjective Date patient seen: Sep 23, 2018 Time patient seen: 07:01 ROS Limited/Unobtainable: Yes Allergies: Coded Allergies: No Known Allergies (Unverified , 09/20/18) Subjective Patient sleeping comfortably Objective Last 24 Hour Vital Signs Date Time Temp Pulse Resp B/P (MAP) Pulse Ox O2 Delivery O2 Flow Rate FiO2 09/23/18 04:00 98.6 79 18 142/80 (100) 93 09/23/18 00:00 98.8 83 18 133/84 (100) 94 09/22/18 21:00 Room Air 09/22/18 20:00 99.0 85 20 151/86 (107) 95 09/22/18 16:00 99.5 89 16 127/74 (91) 95 09/22/18 12:00 98.8 87 20 147/85 (105) 95 09/22/18 09:13 88 18 98 09/22/18 09:04 89 18 98 09/22/18 09:00 Room Air 09/22/18 08:45 97.6 85 20 142/81 (101) 95 09/22/18 08:38 97.6 88 18 126/79 96 Room Air 09/22/18 08:30 92 17 138/79 96 Nasal Cannula 3 09/22/18 08:23 98.0 89 18 145/89 98 Nasal Cannula 3 Intake and Output 09/22/18 09/23/18 19:00 07:00 Intake Total 950 ml 550.000 ml Balance 950 ml 550.000 ml Intake Oral 650 ml 0 ml IV Total 300 ml 550.000 ml # Voids 3 1 # Bowel Movements 1 Laboratory Tests 09/22/18 10:15: Vancomycin Level Trough 4.8L 09/23/18 05:22: Sodium Level 133L, Potassium Level 3.0L, Chloride Level 100, Carbon Dioxide Level 25, Anion Gap 8, Blood Urea Nitrogen 6L, Creatinine 0.6, Estimat Glomerular Filtration Rate > 60, Glucose Level 121H, Calcium Level 7.5L, Total Bilirubin 2.0H, Direct Bilirubin 0.9H, Aspartate Amino Transf (AST/SGOT) 72H, Alanine Aminotransferase (ALT/SGPT) 97H, Alkaline Phosphatase 77, Total Protein 6.2L, Albumin 2.3L, Globulin 3.9, Albumin/Globulin Ratio 0.6L Height (Feet): 6 Height (Inches): 6.00 Weight (Pounds): 231 General Appearance: no apparent distress EENT: normal ENT inspection Neck: normal alignment, supple Cardiovascular: normal rate, regular rhythm Respiratory/Chest: lungs clear, normal breath sounds Abdomen: non tender, soft Edema: no edema noted Arm (L), no edema noted Arm (R), no edema noted Leg (L), no edema noted Leg (R), no edema noted Pedal (L), no edema noted Pedal (R), no edema noted Generalized Fidel Segundo MD Sep 23, 2018 07:02
[2018-09-23 08:00] VITALS: BP 127/79
[2018-09-23] MEDS: Thiamine 100mg tab ORAL SCH (09:20)
[2018-09-23] MEDS: Vancomycin oral 125mg/2.5ml ORAL SCH ×4 (09:20→21:21)
--- NOTE | 2018-09-23 10:37 | GI Progress Note ---
Assessment/Plan Problems: (1) Esophageal varices ICD Codes: I85.00 - Esophageal varices without bleeding SNOMED: 54886557 (2) Melena ICD Codes: K92.1 - Melena SNOMED: 3464233 (3) Gastroenteritis ICD Codes: K52.9 - Noninfective gastroenteritis and colitis, unspecified SNOMED: 95007873 (4) Dehydration ICD Codes: E86.0 - Dehydration SNOMED: 56341460 Status: stable Status Narrative Discussed with Dr. Wall Assessment/Plan SUMMARY OF FINDINGS: 1. Esophageal varices, status post banding x7. 2. Gastritis, status post biopsy. 3. Portal hypertensive gastropathy. C. difficile positive RECOMMENDATIONS: Followup pathology. okay for DC per GI standpoint The patient will need a repeat endoscopy and banding in 4 to 6 weeks. Advance diet Antibiotics per ID DC PPI follow labs The patient was seen and examined at bedside and all new and available data was reviewed in the patients chart. I agree with the above findings, impression and plan. (Patient seen earlier today. Signature stamp does not reflect patient encounter time.). - Malachi Wall MD Subjective Gastrointestinal/Abdominal: Reports: no symptoms Objective Last 24 Hour Vital Signs Date Time Temp Pulse Resp B/P (MAP) Pulse Ox O2 Delivery O2 Flow Rate FiO2 09/23/18 08:00 98.9 78 18 127/79 (95) 95 09/23/18 04:00 98.6 79 18 142/80 (100) 93 09/23/18 00:00 98.8 83 18 133/84 (100) 94 09/22/18 21:00 Room Air 09/22/18 20:00 99.0 85 20 151/86 (107) 95 09/22/18 16:00 99.5 89 16 127/74 (91) 95 09/22/18 12:00 98.8 87 20 147/85 (105) 95 Intake and Output 09/22/18 09/23/18 19:00 07:00 Intake Total 950 ml 550.000 ml Balance 950 ml 550.000 ml Intake Oral 650 ml 0 ml IV Total 300 ml 550.000 ml # Voids 3 1 # Bowel Movements 1 Laboratory Tests Test 09/23/18 05:22 09/23/18 10:00 Sodium Level 133 MMOL/L (136-145) L Potassium Level 3.0 MMOL/L (3.5-5.1) L Chloride Level 100 MMOL/L (98-107) Carbon Dioxide Level 25 MMOL/L (21-32) Anion Gap 8 mmol/L (5-15) Blood Urea Nitrogen 6 mg/dL (7-18) L Creatinine 0.6 MG/DL (0.55-1.30) Estimat Glomerular Filtration Rate > 60 mL/min (>60) Glucose Level 121 MG/DL (74-106) H Calcium Level 7.5 MG/DL (8.5-10.1) L Total Bilirubin 2.0 MG/DL (0.2-1.0) H Direct Bilirubin 0.9 MG/DL (0.0-0.3) H Aspartate Amino Transf (AST/SGOT) 72 U/L (15-37) H Alanine Aminotransferase (ALT/SGPT) 97 U/L (12-78) H Alkaline Phosphatase 77 U/L (46-116) Total Protein 6.2 G/DL (6.4-8.2) L Albumin 2.3 G/DL (3.4-5.0) L Globulin 3.9 g/dL Albumin/Globulin Ratio 0.6 (1.0-2.7) L Vancomycin Level Trough Pending Height (Feet): 6 Height (Inches): 6.00 Weight (Pounds): 231 General Appearance: WD/WN, no apparent distress, alert Cardiovascular: normal rate Respiratory/Chest: normal breath sounds, no respiratory distress Abdominal Exam: normal bowel sounds, non tender, soft Extremities: normal range of motion, non-tender Neelima Jurado NP Sep 23, 2018 10:37
--- NOTE | 2018-09-23 10:44 | Pulmonology Progress Note ---
Assessment/Plan Assessment/Plan 1. Hypoalbuminemia. 2. Malnutrition. 3. Liver cirrhosis. 4. Diarrhea. 5. Diabetes, questionable. DISCUSSION: Continue empiric antibiotics.Seen by GI. Intravenous fluids. Discontinued lactulose. Has C diff. I will follow carefully. Subjective Interval Events: None new Constitutional: Reports: no symptoms HEENT: Repors: no symptoms Respiratory: Reports: no symptoms Cardiovascular: Reports: no symptoms Gastrointestinal/Abdominal: Reports: diarrhea Allergies: Coded Allergies: No Known Allergies (Unverified , 09/20/18) Objective Last 24 Hour Vital Signs Date Time Temp Pulse Resp B/P (MAP) Pulse Ox O2 Delivery O2 Flow Rate FiO2 09/23/18 08:00 98.9 78 18 127/79 (95) 95 09/23/18 04:00 98.6 79 18 142/80 (100) 93 09/23/18 00:00 98.8 83 18 133/84 (100) 94 09/22/18 21:00 Room Air 09/22/18 20:00 99.0 85 20 151/86 (107) 95 09/22/18 16:00 99.5 89 16 127/74 (91) 95 09/22/18 12:00 98.8 87 20 147/85 (105) 95 Intake and Output 09/22/18 09/23/18 19:00 07:00 Intake Total 950 ml 550.000 ml Balance 950 ml 550.000 ml Intake Oral 650 ml 0 ml IV Total 300 ml 550.000 ml # Voids 3 1 # Bowel Movements 1 General Appearance: no acute distress HEENT: normocephalic Respiratory/Chest: chest wall non-tender, normal breath sounds Microbiology Date/Time Source Procedure Growth Status 09/20/18 18:05 Nasal Nares - Final Complete 09/20/18 18:05 Nasal Nares - Final Complete 09/21/18 17:35 Stool Clostridium difficile Toxin Assay - Final Complete Laboratory Tests 09/23/18 05:22: Sodium Level 133L, Potassium Level 3.0L, Chloride Level 100, Carbon Dioxide Level 25, Anion Gap 8, Blood Urea Nitrogen 6L, Creatinine 0.6, Estimat Glomerular Filtration Rate > 60, Glucose Level 121H, Calcium Level 7.5L, Total Bilirubin 2.0H, Direct Bilirubin 0.9H, Aspartate Amino Transf (AST/SGOT) 72H, Alanine Aminotransferase (ALT/SGPT) 97H, Alkaline Phosphatase 77, Total Protein 6.2L, Albumin 2.3L, Globulin 3.9, Albumin/Globulin Ratio 0.6L 09/23/18 10:00: Vancomycin Level Trough [Pending] Current Medications Medications (Trade) Dose Ordered Sig/Kaylah Route PRN Reason Start Time Stop Time Status Last Admin Dose Admin Ceftriaxone Sodium 1 gm/ Dextrose 50 ml @ 100 mls/hr Q24H IVPB 09/22/18 15:30 09/28/18 15:29 09/22/18 16:48 Dextrose (Dextrose 50%) 25 ml Q30M PRN IV Hypoglycemia 09/21/18 16:15 10/20/18 22:14 Dextrose (Dextrose 50%) 50 ml Q30M PRN IV Hypoglycemia 09/21/18 16:15 10/20/18 22:14 Famotidine (Pepcid) 20 mg BID ORAL 09/23/18 18:00 10/23/18 17:59 Folic Acid (Folate) 1 mg DAILY ORAL 09/22/18 09:00 10/21/18 08:59 09/23/18 09:20 Metronidazole (Flagyl) 500 mg Q8HR ORAL 09/21/18 22:00 09/28/18 13:59 09/23/18 05:05 Ondansetron HCl (Zofran) 4 mg Q6H PRN IVP Nausea & Vomiting 09/21/18 16:15 10/20/18 22:14 Thiamine HCl (Vitamin B1) 100 mg DAILY ORAL 09/22/18 09:00 10/21/18 08:59 09/23/18 09:20 Vancomycin HCl (Firvanq) 125 mg FOUR TIMES A DAY ORAL 09/21/18 18:00 09/28/18 12:59 09/23/18 09:20 Vancomycin HCl/ Dextrose 275 ml @ 183.333 mls/hr Q8H IVPB 09/22/18 11:00 09/27/18 10:59 09/23/18 02:59 Rajesh Myers MD Sep 23, 2018 10:44
[2018-09-23 12:00] VITALS: BP 140/82
[2018-09-23] MEDS: Vancomycin 1.5gm Premix IVPB SCH ×2 (13:00→20:24)
[2018-09-23] MEDS: cefTRIAXone 1 GM in D5W 50 ML IVPB SCH (15:44)
[2018-09-23] MEDS ORDERED: Tubing IV Secondary IV ONE (15:45)
[2018-09-23 16:00] VITALS: BP 141/84
[2018-09-23 20:00] VITALS: BP 136/90
[2018-09-24 00:35] VITALS: BP 129/75
[2018-09-24] MEDS: Vancomycin 1.5gm Premix IVPB SCH (04:25)
[2018-09-24 04:38] VITALS: BP 118/65
[2018-09-24] MEDS: metroNIDAZOLE 500mg tab ORAL SCH ×2 (05:07→14:30)
[2018-09-24 07:30] LABS: HEMATOCRIT 35.1 % (42.0-52.0); HEMOGLOBIN 12.6 G/DL (14.2-18.0); MEAN CORPUSCULAR VOLUME 93 FL (80-99); PLATELET COUNT 65 K/UL (150-450); RED BLOOD COUNT 3.79 M/UL (4.70-6.10); RED CELL DISTRIBUTION WIDTH 12.5 % (11.6-14.8); WHITE BLOOD COUNT 4.7 K/UL (4.8-10.8)
[2018-09-24 07:43] LABS: ALANINE AMINOTRANSFERASE 88 U/L (12-78); ALBUMIN 2.1 G/DL (3.4-5.0); ALBUMIN/GLOBULIN RATIO 0.5 (1.0-2.7); ALKALINE PHOSPHATASE 72 U/L (46-116); ANION GAP 9 mmol/L (5-15); ASPARTATE AMINO TRANSFERASE 74 U/L (15-37); BILIRUBIN,TOTAL 1.7 MG/DL (0.2-1.0); BLOOD UREA NITROGEN 6 mg/dL (7-18); CARBON DIOXIDE 26 MMOL/L (21-32); CHLORIDE 100 MMOL/L (98-107); CREATININE 0.6 MG/DL (0.55-1.30); PHOSPHORUS 2.8 MG/DL (2.5-4.9); SODIUM 135 MMOL/L (136-145)
[2018-09-24 07:44] LABS: BILIRUBIN,DIRECT 0.7 MG/DL (0.0-0.3)
[2018-09-24 08:00] VITALS: BP 126/84
--- NOTE | 2018-09-24 08:19 | Pulmonology Progress Note ---
Assessment/Plan Assessment/Plan 1. Hypoalbuminemia. 2. Malnutrition. 3. Liver cirrhosis. 4. Diarrhea. 5. Diabetes, questionable. DISCUSSION: Continue empiric antibiotics.Seen by GI. Intravenous fluids. Discontinued lactulose. Has C diff. I will follow carefully. Dc home when diarrhea resolves Subjective Interval Events: better Constitutional: Reports: no symptoms HEENT: Repors: no symptoms Respiratory: Reports: no symptoms Cardiovascular: Reports: no symptoms Gastrointestinal/Abdominal: Reports: no symptoms Genitourinary: Reports: no symptoms Allergies: Coded Allergies: No Known Allergies (Unverified , 09/20/18) Objective Last 24 Hour Vital Signs Date Time Temp Pulse Resp B/P (MAP) Pulse Ox O2 Delivery O2 Flow Rate FiO2 09/24/18 04:38 98.0 75 20 118/65 (82) 98 09/24/18 00:35 99.0 86 20 129/75 (93) 96 09/23/18 21:07 Room Air 09/23/18 20:00 99.2 86 20 136/90 (105) 96 09/23/18 16:00 98.8 81 20 141/84 (103) 94 09/23/18 12:00 98.4 79 18 140/82 (101) 97 09/23/18 09:00 Room Air Intake and Output 09/23/18 09/24/18 18:59 06:59 Intake Total 1315.0 ml 550.0 ml Output Total 325 ml Balance 1315.0 ml 225.0 ml Intake Oral 940 ml IV Total 375.0 ml 550.0 ml Output Urine Total 325 ml # Voids 6 # Bowel Movements 3 General Appearance: no acute distress HEENT: normocephalic Respiratory/Chest: chest wall non-tender, lungs clear Cardiovascular: normal peripheral pulses, normal rate Abdomen: soft, non tender Microbiology Date/Time Source Procedure Growth Status 09/22/18 17:15 Blood Blood Culture - Preliminary NO GROWTH AFTER 24 HOURS Resulted 09/22/18 17:00 Blood Blood Culture - Preliminary NO GROWTH AFTER 24 HOURS Resulted 09/21/18 17:35 Stool Stool Culture - Preliminary NORMAL FECAL NICOLE. Resulted 09/21/18 17:35 Stool Clostridium difficile Toxin Assay - Final Complete Laboratory Tests 09/23/18 10:00: Vancomycin Level Trough 11.2 09/24/18 05:55: White Blood Count 4.7L, Red Blood Count 3.79L, Hemoglobin 12.6L, Hematocrit 35.1L, Mean Corpuscular Volume 93, Mean Corpuscular Hemoglobin 33.3H, Mean Corpuscular Hemoglobin Concent 35.9, Red Cell Distribution Width 12.5, Platelet Count 65L, Mean Platelet Volume 7.8, Neutrophils (%) (Auto) , Lymphocytes (%) ( Auto) , Monocytes (%) (Auto) , Eosinophils (%) (Auto) , Basophils (%) (Auto) , Neutrophils % (Manual) [Pending], Lymphocytes % (Manual) [Pending], Platelet Estimate [Pending], Platelet Morphology [Pending], Sodium Level 135L, Potassium Level 3.0L, Chloride Level 100, Carbon Dioxide Level 26, Anion Gap 9, Blood Urea Nitrogen 6L, Creatinine 0.6, Estimat Glomerular Filtration Rate > 60, Glucose Level 126H, Calcium Level 8.0L, Phosphorus Level 2.8, Magnesium Level 1.5L, Total Bilirubin 1.7H, Direct Bilirubin 0.7H, Aspartate Amino Transf (AST/ SGOT) 74H, Alanine Aminotransferase (ALT/SGPT) 88H, Alkaline Phosphatase 72, Total Protein 6.0L, Albumin 2.1L, Globulin 3.9, Albumin/Globulin Ratio 0.5L Current Medications Medications (Trade) Dose Ordered Sig/Kaylah Route PRN Reason Start Time Stop Time Status Last Admin Dose Admin Ceftriaxone Sodium 1 gm/ Dextrose 50 ml @ 100 mls/hr Q24H IVPB 09/22/18 15:30 09/28/18 15:29 09/23/18 15:44 Dextrose (Dextrose 50%) 25 ml Q30M PRN IV Hypoglycemia 09/21/18 16:15 10/20/18 22:14 Dextrose (Dextrose 50%) 50 ml Q30M PRN IV Hypoglycemia 09/21/18 16:15 10/20/18 22:14 Famotidine (Pepcid) 20 mg BID ORAL 09/23/18 18:00 10/23/18 17:59 09/23/18 17:59 Folic Acid (Folate) 1 mg DAILY ORAL 09/22/18 09:00 10/21/18 08:59 09/23/18 09:20 Metronidazole (Flagyl) 500 mg Q8HR ORAL 09/21/18 22:00 09/28/18 13:59 09/24/18 05:07 Ondansetron HCl (Zofran) 4 mg Q6H PRN IVP Nausea & Vomiting 09/21/18 16:15 10/20/18 22:14 Thiamine HCl (Vitamin B1) 100 mg DAILY ORAL 09/22/18 09:00 10/21/18 08:59 09/23/18 09:20 Vancomycin HCl (Firvanq) 125 mg FOUR TIMES A DAY ORAL 09/21/18 18:00 09/28/18 12:59 09/23/18 21:21 Vancomycin HCl (Vanco rx to dose) 1 ea DAILY PRN MISC . 09/23/18 14:00 10/23/18 13:59 Vancomycin HCl/ Dextrose 275 ml @ 137.5 mls/ hr Q8H IVPB 09/23/18 12:00 09/28/18 11:59 09/24/18 04:25 Rajesh Myers MD Sep 24, 2018 08:19
[2018-09-24] MEDS: Vancomycin oral 125mg/2.5ml ORAL SCH ×5 (09:36→21:40)
[2018-09-24] MEDS: Thiamine 100mg tab ORAL SCH (09:39)
[2018-09-24 12:00] VITALS: BP 139/65
[2018-09-24] MEDS ORDERED: Vancomycin 1.5gm Premix IVPB SCH (12:00)
--- NOTE | 2018-09-24 12:43 | GI Progress Note ---
Assessment/Plan Problems: (1) Esophageal varices ICD Codes: I85.00 - Esophageal varices without bleeding SNOMED: 88127716 (2) Melena ICD Codes: K92.1 - Melena SNOMED: 2523325 (3) Gastroenteritis ICD Codes: K52.9 - Noninfective gastroenteritis and colitis, unspecified SNOMED: 16856677 (4) Dehydration ICD Codes: E86.0 - Dehydration SNOMED: 01177116 Status: stable Status Narrative Discussed with Dr. Wall. Assessment/Plan SUMMARY OF FINDINGS: 1. Esophageal varices, status post banding x7. 2. Gastritis, status post biopsy. 3. Portal hypertensive gastropathy. C. difficile positive RECOMMENDATIONS: Followup pathology. okay for DC per GI standpoint The patient will need a repeat endoscopy and banding in 4 to 6 weeks. Advance diet Antibiotics per ID DC PPI follow labs The patient was seen and examined at bedside and all new and available data was reviewed in the patients chart. I agree with the above findings, impression and plan. (Patient seen earlier today. Signature stamp does not reflect patient encounter time.). - Malachi Wall MD Subjective Gastrointestinal/Abdominal: Reports: no symptoms Objective Last 24 Hour Vital Signs Date Time Temp Pulse Resp B/P (MAP) Pulse Ox O2 Delivery O2 Flow Rate FiO2 09/24/18 09:00 Room Air 09/24/18 08:00 98.6 79 17 126/84 (98) 94 09/24/18 04:38 98.0 75 20 118/65 (82) 98 09/24/18 00:35 99.0 86 20 129/75 (93) 96 09/23/18 21:07 Room Air 09/23/18 20:00 99.2 86 20 136/90 (105) 96 09/23/18 16:00 98.8 81 20 141/84 (103) 94 Intake and Output 09/23/18 09/24/18 19:00 07:00 Intake Total 1315.0 ml 550.0 ml Output Total 325 ml Balance 1315.0 ml 225.0 ml Intake Oral 940 ml IV Total 375.0 ml 550.0 ml Output Urine Total 325 ml # Voids 6 # Bowel Movements 3 Laboratory Tests Test 09/24/18 05:55 09/24/18 11:00 White Blood Count 4.7 K/UL (4.8-10.8) L Red Blood Count 3.79 M/UL (4.70-6.10) L Hemoglobin 12.6 G/DL (14.2-18.0) L Hematocrit 35.1 % (42.0-52.0) L Mean Corpuscular Volume 93 FL (80-99) Mean Corpuscular Hemoglobin 33.3 PG (27.0-31.0) H Mean Corpuscular Hemoglobin Concent 35.9 G/DL (32.0-36.0) Red Cell Distribution Width 12.5 % (11.6-14.8) Platelet Count 65 K/UL (150-450) L Mean Platelet Volume 7.8 FL (6.5-10.1) Neutrophils (%) (Auto) % (45.0-75.0) Lymphocytes (%) (Auto) % (20.0-45.0) Monocytes (%) (Auto) % (1.0-10.0) Eosinophils (%) (Auto) % (0.0-3.0) Basophils (%) (Auto) % (0.0-2.0) Differential Total Cells Counted 100 Neutrophils % (Manual) 72 % (45-75) Lymphocytes % (Manual) 14 % (20-45) L Monocytes % (Manual) 8 % (1-10) Eosinophils % (Manual) 6 % (0-3) H Basophils % (Manual) 0 % (0-2) Band Neutrophils 0 % (0-8) Platelet Estimate Decreased L Platelet Morphology Normal Red Blood Cell Morphology Normal Sodium Level 135 MMOL/L (136-145) L Potassium Level 3.0 MMOL/L (3.5-5.1) L Chloride Level 100 MMOL/L (98-107) Carbon Dioxide Level 26 MMOL/L (21-32) Anion Gap 9 mmol/L (5-15) Blood Urea Nitrogen 6 mg/dL (7-18) L Creatinine 0.6 MG/DL (0.55-1.30) Estimat Glomerular Filtration Rate > 60 mL/min (>60) Glucose Level 126 MG/DL (74-106) H Calcium Level 8.0 MG/DL (8.5-10.1) L Phosphorus Level 2.8 MG/DL (2.5-4.9) Magnesium Level 1.5 MG/DL (1.8-2.4) L Total Bilirubin 1.7 MG/DL (0.2-1.0) H Direct Bilirubin 0.7 MG/DL (0.0-0.3) H Aspartate Amino Transf (AST/SGOT) 74 U/L (15-37) H Alanine Aminotransferase (ALT/SGPT) 88 U/L (12-78) H Alkaline Phosphatase 72 U/L (46-116) Total Protein 6.0 G/DL (6.4-8.2) L Albumin 2.1 G/DL (3.4-5.0) L Globulin 3.9 g/dL Albumin/Globulin Ratio 0.5 (1.0-2.7) L Vancomycin Level Trough 13.3 ug/mL (5.0-12.0) H Height (Feet): 6 Height (Inches): 6.00 Weight (Pounds): 231 General Appearance: WD/WN, no apparent distress, alert Cardiovascular: normal rate Respiratory/Chest: normal breath sounds, no respiratory distress Abdominal Exam: normal bowel sounds, non tender, soft Extremities: normal range of motion, non-tender Neelima Jurado NP Sep 24, 2018 12:43
[2018-09-24] MEDS: cefTRIAXone 1 GM in D5W 50 ML IVPB SCH (15:30)
--- NOTE | 2018-09-24 15:57 | Infectious Diseases Prog Note ---
Assessment/Plan Assessment/Plan ASSESSMENT AND PLAN: 1. C.diff. + , sepsis, leukocytosis, fevers, diarrhea - po vancomycin - day # 3/ - discontinue other antibiotics - monitor diarrhea - monitor labs 2. Anemia. 3. Cirrhosis. 4. Possible diabetes. 5. No history of hypertension. 6. Follow up on blood cultures. 7. Diabetes treatment per primary. 8. The patient is status post EGD. 9. Cirrhosis. 10. No known drug allergies. 11. Social history is negative. 12. Family history is noncontributory. 13. MAR was noted. 14. Case was discussed with RN. 15. Continue treatment per primary consultants. Subjective Constitutional: Denies: fever HEENT: Denies: congestion Respiratory: Denies: shortness of breath Cardiovascular: Denies: chest pain Gastrointestinal/Abdominal: Reports: diarrhea; Denies: nausea, vomiting Genitourinary: Denies: dysuria, hematuria Neurologic: Denies: headache, numbness Psychiatric: Denies: depression Hematologic: Denies: bleeding Musculoskeletal: Denies: pain Allergies: Coded Allergies: No Known Allergies (Unverified , 09/20/18) Objective Vital Signs Last 24 Hour Vital Signs Date Time Temp Pulse Resp B/P (MAP) Pulse Ox O2 Delivery O2 Flow Rate FiO2 09/24/18 12:00 98.7 71 16 139/65 (89) 100 09/24/18 09:00 Room Air 09/24/18 08:00 98.6 79 17 126/84 (98) 94 09/24/18 04:38 98.0 75 20 118/65 (82) 98 09/24/18 00:35 99.0 86 20 129/75 (93) 96 09/23/18 21:07 Room Air 09/23/18 20:00 99.2 86 20 136/90 (105) 96 09/23/18 16:00 98.8 81 20 141/84 (103) 94 Height (Feet): 6 Height (Inches): 6.00 Weight (Pounds): 231 General Appearance: no acute distress HEENT: normocephalic, atraumatic, anicteric, mucous membranes moist Respiratory/Chest: lungs clear, normal breath sounds, no respiratory distress, no accessory muscle use Cardiovascular: normal rate, regular rhythm, no gallop/murmur, no JVD Abdomen: normal bowel sounds, non distended Genitourinary: other - no marr Extremities: no cyanosis Skin: no rash Neurologic/Psychiatric: 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 Findings: Mild pulmonary vascular congestion suspected. Heart is normal size. Bones are unremarkable. No pleural effusion seen. IMPRESSION: Prominent vascularity. Suspect mild CHF. Correlate clinically Microbiology Date/Time Source Procedure Growth Status 09/22/18 17:15 Blood Blood Culture - Preliminary NO GROWTH AFTER 24 HOURS Resulted 09/20/18 18:05 Nasal Nares - Final Complete 09/20/18 18:05 Nasal Nares - Final Complete 09/21/18 17:35 Stool Stool Culture - Preliminary NORMAL FECAL NICOLE. Resulted Microbiology Date/Time Source Procedure Growth Status 09/22/18 17:15 Blood Blood Culture - Preliminary NO GROWTH AFTER 24 HOURS Resulted 09/22/18 17:00 Blood Blood Culture - Preliminary NO GROWTH AFTER 24 HOURS Resulted 09/21/18 17:35 Stool Stool Culture - Preliminary NORMAL FECAL NICOLE. Resulted 09/21/18 17:35 Stool Clostridium difficile Toxin Assay - Final Complete c.diff. - + toxin A and B Laboratory Tests Test 09/24/18 05:55 09/24/18 11:00 White Blood Count 4.7 K/UL (4.8-10.8) L Red Blood Count 3.79 M/UL (4.70-6.10) L Hemoglobin 12.6 G/DL (14.2-18.0) L Hematocrit 35.1 % (42.0-52.0) L Mean Corpuscular Volume 93 FL (80-99) Mean Corpuscular Hemoglobin 33.3 PG (27.0-31.0) H Mean Corpuscular Hemoglobin Concent 35.9 G/DL (32.0-36.0) Red Cell Distribution Width 12.5 % (11.6-14.8) Platelet Count 65 K/UL (150-450) L Mean Platelet Volume 7.8 FL (6.5-10.1) Neutrophils (%) (Auto) % (45.0-75.0) Lymphocytes (%) (Auto) % (20.0-45.0) Monocytes (%) (Auto) % (1.0-10.0) Eosinophils (%) (Auto) % (0.0-3.0) Basophils (%) (Auto) % (0.0-2.0) Differential Total Cells Counted 100 Neutrophils % (Manual) 72 % (45-75) Lymphocytes % (Manual) 14 % (20-45) L Monocytes % (Manual) 8 % (1-10) Eosinophils % (Manual) 6 % (0-3) H Basophils % (Manual) 0 % (0-2) Band Neutrophils 0 % (0-8) Platelet Estimate Decreased L Platelet Morphology Normal Red Blood Cell Morphology Normal Sodium Level 135 MMOL/L (136-145) L Potassium Level 3.0 MMOL/L (3.5-5.1) L Chloride Level 100 MMOL/L (98-107) Carbon Dioxide Level 26 MMOL/L (21-32) Anion Gap 9 mmol/L (5-15) Blood Urea Nitrogen 6 mg/dL (7-18) L Creatinine 0.6 MG/DL (0.55-1.30) Estimat Glomerular Filtration Rate > 60 mL/min (>60) Glucose Level 126 MG/DL (74-106) H Calcium Level 8.0 MG/DL (8.5-10.1) L Phosphorus Level 2.8 MG/DL (2.5-4.9) Magnesium Level 1.5 MG/DL (1.8-2.4) L Total Bilirubin 1.7 MG/DL (0.2-1.0) H Direct Bilirubin 0.7 MG/DL (0.0-0.3) H Aspartate Amino Transf (AST/SGOT) 74 U/L (15-37) H Alanine Aminotransferase (ALT/SGPT) 88 U/L (12-78) H Alkaline Phosphatase 72 U/L (46-116) Total Protein 6.0 G/DL (6.4-8.2) L Albumin 2.1 G/DL (3.4-5.0) L Globulin 3.9 g/dL Albumin/Globulin Ratio 0.5 (1.0-2.7) L Vancomycin Level Trough 13.3 ug/mL (5.0-12.0) H Current Medications Medications (Trade) Dose Ordered Sig/Kaylah Route PRN Reason Start Time Stop Time Status Last Admin Dose Admin Dextrose (Dextrose 50%) 25 ml Q30M PRN IV Hypoglycemia 09/21/18 16:15 10/20/18 22:14 Dextrose (Dextrose 50%) 50 ml Q30M PRN IV Hypoglycemia 09/21/18 16:15 10/20/18 22:14 Famotidine (Pepcid) 20 mg BID ORAL 09/23/18 18:00 10/23/18 17:59 09/24/18 09:37 Folic Acid (Folate) 1 mg DAILY ORAL 09/22/18 09:00 10/21/18 08:59 09/24/18 09:36 Ondansetron HCl (Zofran) 4 mg Q6H PRN IVP Nausea & Vomiting 09/21/18 16:15 10/20/18 22:14 Thiamine HCl (Vitamin B1) 100 mg DAILY ORAL 09/22/18 09:00 10/21/18 08:59 09/24/18 09:39 Vancomycin HCl (Firvanq) 125 mg FOUR TIMES A DAY ORAL 09/21/18 18:00 09/28/18 12:59 09/24/18 13:53 Lisha Aguirre MD Sep 24, 2018 15:57
[2018-09-24 16:00] VITALS: BP 131/80
--- NOTE | 2018-09-24 19:04 | Nephrology Progress Note ---
Assessment/Plan Status: stable Assessment/Plan: A/P 1) Hyponatremia- due to cirrhosis - sresolved 2) Hypokalemia- will replace today IV due to diarrhea 3) Diarrhea- S/P EGD - Esophageal varices, status post banding x7. - CDiff- Vanc #3/7 4) Dehydration- resolved. 50 HypoMg/Phos- replace prn Patient homeless, cw case filler for disposition Subjective Date patient seen: Sep 24, 2018 Time patient seen: 19:02 ROS Limited/Unobtainable: No Allergies: Coded Allergies: No Known Allergies (Unverified , 09/20/18) Subjective Patient says still having diarrhea Objective Last 24 Hour Vital Signs Date Time Temp Pulse Resp B/P (MAP) Pulse Ox O2 Delivery O2 Flow Rate FiO2 09/24/18 16:00 99.3 76 19 131/80 (97) 95 09/24/18 12:00 98.7 71 16 139/65 (89) 100 09/24/18 09:00 Room Air 09/24/18 08:00 98.6 79 17 126/84 (98) 94 09/24/18 04:38 98.0 75 20 118/65 (82) 98 09/24/18 00:35 99.0 86 20 129/75 (93) 96 09/23/18 21:07 Room Air 09/23/18 20:00 99.2 86 20 136/90 (105) 96 Intake and Output 09/23/18 09/24/18 18:59 06:59 Intake Total 1315.0 ml 550.0 ml Output Total 325 ml Balance 1315.0 ml 225.0 ml Intake Oral 940 ml IV Total 375.0 ml 550.0 ml Output Urine Total 325 ml # Voids 6 # Bowel Movements 3 Laboratory Tests 09/24/18 05:55: White Blood Count 4.7L, Red Blood Count 3.79L, Hemoglobin 12.6L, Hematocrit 35.1L, Mean Corpuscular Volume 93, Mean Corpuscular Hemoglobin 33.3H, Mean Corpuscular Hemoglobin Concent 35.9, Red Cell Distribution Width 12.5, Platelet Count 65L, Mean Platelet Volume 7.8, Neutrophils (%) (Auto) , Lymphocytes (%) ( Auto) , Monocytes (%) (Auto) , Eosinophils (%) (Auto) , Basophils (%) (Auto) , Differential Total Cells Counted 100, Neutrophils % (Manual) 72, Lymphocytes % ( Manual) 14L, Monocytes % (Manual) 8, Eosinophils % (Manual) 6H, Basophils % ( Manual) 0, Band Neutrophils 0, Platelet Estimate DecreasedL, Platelet Morphology Normal, Red Blood Cell Morphology Normal, Sodium Level 135L, Potassium Level 3.0L, Chloride Level 100, Carbon Dioxide Level 26, Anion Gap 9, Blood Urea Nitrogen 6L, Creatinine 0.6, Estimat Glomerular Filtration Rate > 60 , Glucose Level 126H, Calcium Level 8.0L, Phosphorus Level 2.8, Magnesium Level 1.5L, Total Bilirubin 1.7H, Direct Bilirubin 0.7H, Aspartate Amino Transf (AST/ SGOT) 74H, Alanine Aminotransferase (ALT/SGPT) 88H, Alkaline Phosphatase 72, Total Protein 6.0L, Albumin 2.1L, Globulin 3.9, Albumin/Globulin Ratio 0.5L 09/24/18 11:00: Vancomycin Level Trough 13.3H Height (Feet): 6 Height (Inches): 6.00 Weight (Pounds): 231 General Appearance: no apparent distress, alert EENT: normal ENT inspection Neck: normal alignment, supple Cardiovascular: normal rate, regular rhythm Respiratory/Chest: lungs clear, normal breath sounds Abdomen: non tender, soft Edema: no edema noted Arm (L), no edema noted Arm (R), no edema noted Leg (L), no edema noted Leg (R), no edema noted Pedal (L), no edema noted Pedal (R), no edema noted Generalized Fidel Segundo MD Sep 24, 2018 19:04
[2018-09-24 20:00] VITALS: BP 138/76
[2018-09-25] VITALS: BP 135/76
[2018-09-25 04:00] VITALS: BP 137/77
[2018-09-25 06:02] LABS: HEMATOCRIT 38.4 % (42.0-52.0); HEMOGLOBIN 13.6 G/DL (14.2-18.0); MEAN CORPUSCULAR VOLUME 93 FL (80-99); PLATELET COUNT 86 K/UL (150-450); RED BLOOD COUNT 4.15 M/UL (4.70-6.10); RED CELL DISTRIBUTION WIDTH 12.9 % (11.6-14.8); WHITE BLOOD COUNT 4.3 K/UL (4.8-10.8)
[2018-09-25 06:35] LABS: ANION GAP 7 mmol/L (5-15); BLOOD UREA NITROGEN 6 mg/dL (7-18); CALCIUM 8.3 MG/DL (8.5-10.1); CARBON DIOXIDE 26 MMOL/L (21-32); CHLORIDE 105 MMOL/L (98-107); CREATININE 0.7 MG/DL (0.55-1.30); POTASSIUM 3.5 MMOL/L (3.5-5.1); SODIUM 138 MMOL/L (136-145)
--- NOTE | 2018-09-25 07:07 | Nephrology Progress Note ---
Assessment/Plan Status: stable Assessment/Plan: A/P 1) Hyponatremia- due to cirrhosis - resolved 2) Hypokalemia- corrected 3) Diarrhea- S/P EGD - Esophageal varices, status post banding x7. - CDiff- Vanc #347 4) Dehydration- resolved. 50 HypoMg/Phos- replace prn DC patient. Patient homeless, cw/sw case for disposition Subjective Date patient seen: Sep 25, 2018 Time patient seen: 07:06 ROS Limited/Unobtainable: No Allergies: Coded Allergies: No Known Allergies (Unverified , 09/20/18) Subjective Patient diarrhea improved Objective Last 24 Hour Vital Signs Date Time Temp Pulse Resp B/P (MAP) Pulse Ox O2 Delivery O2 Flow Rate FiO2 09/25/18 04:00 98.0 77 18 137/77 (97) 95 09/25/18 00:00 97.8 78 20 135/76 (95) 95 09/24/18 21:00 Room Air 09/24/18 20:00 98.4 80 20 138/76 (96) 95 09/24/18 16:00 99.3 76 19 131/80 (97) 95 09/24/18 12:00 98.7 71 16 139/65 (89) 100 09/24/18 09:00 Room Air 09/24/18 08:00 98.6 79 17 126/84 (98) 94 Intake and Output 09/24/18 09/25/18 19:00 07:00 Intake Total 1200 ml 300 ml Balance 1200 ml 300 ml Intake Oral 1200 ml IV Total 300 ml # Voids 3 # Bowel Movements 2 Laboratory Tests 09/24/18 11:00: Vancomycin Level Trough 13.3H 09/25/18 05:10: White Blood Count 4.3L, Red Blood Count 4.15L, Hemoglobin 13.6L, Hematocrit 38.4L, Mean Corpuscular Volume 93, Mean Corpuscular Hemoglobin 32.6H, Mean Corpuscular Hemoglobin Concent 35.3, Red Cell Distribution Width 12.9, Platelet Count 86L, Mean Platelet Volume 9.5, Neutrophils (%) (Auto) , Lymphocytes (%) ( Auto) , Monocytes (%) (Auto) , Eosinophils (%) (Auto) , Basophils (%) (Auto) , Neutrophils % (Manual) [Pending], Lymphocytes % (Manual) [Pending], Platelet Estimate [Pending], Platelet Morphology [Pending], Sodium Level 138, Potassium Level 3.5, Chloride Level 105, Carbon Dioxide Level 26, Anion Gap 7, Blood Urea Nitrogen 6L, Creatinine 0.7, Estimat Glomerular Filtration Rate > 60, Glucose Level 109H, Calcium Level 8.3L Height (Feet): 6 Height (Inches): 6.00 Weight (Pounds): 231 General Appearance: no apparent distress EENT: normal ENT inspection Neck: normal alignment, supple Cardiovascular: normal rate, regular rhythm Respiratory/Chest: lungs clear, normal breath sounds Abdomen: non tender, soft Edema: no edema noted Arm (L), no edema noted Arm (R), no edema noted Leg (L), no edema noted Leg (R), no edema noted Pedal (L), no edema noted Pedal (R), no edema noted Generalized Fidel Segundo MD Sep 25, 2018 07:07
[2018-09-25 08:00] VITALS: BP 126/72
[2018-09-25] MEDS: Thiamine 100mg tab ORAL SCH (09:03)
[2018-09-25] MEDS: Vancomycin oral 125mg/2.5ml ORAL SCH ×4 (09:03→20:39)
[2018-09-25 12:00] VITALS: BP 128/77
[2018-09-25] MEDS ORDERED: DiphenhydrAMINE 50mg/ml Inj IVP PRN (12:15)
[2018-09-25 16:00] VITALS: BP 136/89
[2018-09-25 20:00] VITALS: BP 135/78
--- NOTE | 2018-09-25 21:58 | General Progress Note ---
Assessment/Plan Status: stable Assessment/Plan: Assessment/Plan Problems: (1) Esophageal varices ICD Codes: I85.00 - Esophageal varices without bleeding SNOMED: 97579729 (2) Melena ICD Codes: K92.1 - Melena SNOMED: 7931271 (3) Gastroenteritis ICD Codes: K52.9 - C Difficile SNOMED: 18209258 (4) Dehydration ICD Codes: E86.0 - Dehydration SNOMED: 86914765 Status: stable Assessment/Plan SUMMARY OF FINDINGS: 1. Esophageal varices, status post banding x7. 2. Gastritis, status post biopsy. 3. Portal hypertensive gastropathy. C. difficile positive RECOMMENDATIONS: Followup pathology. okay for DC per GI standpoint The patient will need a repeat endoscopy and banding in 4 to 6 weeks. Advance diet Antibiotics per ID DC PPI follow labs Subjective Allergies: Coded Allergies: No Known Allergies (Unverified , 09/20/18) Subjective tolerating PO still with multiple loose BM hard to control BM Objective Last 24 Hour Vital Signs Date Time Temp Pulse Resp B/P (MAP) Pulse Ox O2 Delivery O2 Flow Rate FiO2 09/25/18 20:00 98.8 76 18 135/78 (97) 96 09/25/18 16:00 98.0 73 15 136/89 (105) 95 09/25/18 12:00 98.1 78 18 128/77 (94) 97 09/25/18 09:00 Room Air 09/25/18 08:00 98.2 78 18 126/72 (90) 99 09/25/18 04:00 98.0 77 18 137/77 (97) 95 09/25/18 00:00 97.8 78 20 135/76 (95) 95 Intake and Output 09/24/18 09/25/18 18:59 06:59 Intake Total 960 ml 540 ml Balance 960 ml 540 ml Intake Oral 960 ml 240 ml IV Total 300 ml # Voids 3 # Bowel Movements 2 Laboratory Tests 09/25/18 05:10: White Blood Count 4.3L, Red Blood Count 4.15L, Hemoglobin 13.6L, Hematocrit 38.4L, Mean Corpuscular Volume 93, Mean Corpuscular Hemoglobin 32.6H, Mean Corpuscular Hemoglobin Concent 35.3, Red Cell Distribution Width 12.9, Platelet Count 86L, Mean Platelet Volume 9.5, Neutrophils (%) (Auto) , Lymphocytes (%) ( Auto) , Monocytes (%) (Auto) , Eosinophils (%) (Auto) , Basophils (%) (Auto) , Differential Total Cells Counted 100, Neutrophils % (Manual) 75, Lymphocytes % ( Manual) 12L, Monocytes % (Manual) 8, Eosinophils % (Manual) 5H, Basophils % ( Manual) 0, Band Neutrophils 0, Platelet Estimate DecreasedL, Platelet Morphology Normal, Red Blood Cell Morphology Normal, Sodium Level 138, Potassium Level 3.5, Chloride Level 105, Carbon Dioxide Level 26, Anion Gap 7, Blood Urea Nitrogen 6L, Creatinine 0.7, Estimat Glomerular Filtration Rate > 60 , Glucose Level 109H, Calcium Level 8.3L Height (Feet): 6 Height (Inches): 6.00 Weight (Pounds): 231 Objective WDWN NCAT supple CTA RR abd soft no edema Dane Jones MD Sep 25, 2018 21:58
--- NOTE | 2018-09-26 07:35 | Nephrology Progress Note ---
Assessment/Plan Status: stable Assessment/Plan: A/P 1) Hyponatremia- due to cirrhosis - resolved 2) Hypokalemia- resolved 3) Diarrhea- S/P EGD - Esophageal varices, status post banding x7. - CDiff- Vanc #5/7 4) Dehydration- resolved. 50 HypoMg/Phos- replace prn DC patient. He does not want to leave. Patient homeless, cw/sw case for disposition Subjective Date patient seen: Sep 26, 2018 Time patient seen: 07:34 ROS Limited/Unobtainable: No Allergies: Coded Allergies: No Known Allergies (Unverified , 09/20/18) Subjective Patient diarrhea resolved Objective Last 24 Hour Vital Signs Date Time Temp Pulse Resp B/P (MAP) Pulse Ox O2 Delivery O2 Flow Rate FiO2 09/25/18 21:00 Room Air 09/25/18 20:00 98.8 76 18 135/78 (97) 96 09/25/18 16:00 98.0 73 15 136/89 (105) 95 09/25/18 12:00 98.1 78 18 128/77 (94) 97 09/25/18 09:00 Room Air 09/25/18 08:00 98.2 78 18 126/72 (90) 99 Intake and Output 09/25/18 09/26/18 19:00 07:00 Intake Total 318 ml 250 ml Balance 318 ml 250 ml Intake Oral 318 ml 200 ml IV Total 50 ml # Voids 4 2 # Bowel Movements 2 2 Height (Feet): 6 Height (Inches): 6.00 Weight (Pounds): 231 General Appearance: no apparent distress, alert EENT: normal ENT inspection Neck: normal alignment, supple Cardiovascular: normal rate, regular rhythm Respiratory/Chest: lungs clear, normal breath sounds Abdomen: non tender, soft Edema: no edema noted Arm (L), no edema noted Arm (R), no edema noted Leg (L), no edema noted Leg (R), no edema noted Pedal (L), no edema noted Pedal (R), no edema noted Generalized Fidel Segundo MD Sep 26, 2018 07:35
[2018-09-26 08:00] VITALS: BP 133/78
[2018-09-26] MEDS: Vancomycin oral 125mg/2.5ml ORAL SCH ×4 (08:46→20:34)
[2018-09-26] MEDS: Thiamine 100mg tab ORAL SCH (08:46)
[2018-09-26 09:14] LABS: APPEARANCE,URINE CLEAR; BILIRUBIN, URINE NEGATIVE (NEGATIVE); GLUCOSE, URINE (UA) NEGATIVE (NEGATIVE); KETONES,URINE NEGATIVE (NEGATIVE); LEUKOCYTE ESTERASE ,URINE 1+ (NEGATIVE); NITRITE,URINE NEGATIVE (NEGATIVE); PH,URINE 6.5 (4.5-8.0); PROTEIN,URINE 1+ (NEGATIVE); UROBILINOGEN,URINE NORMAL MG/DL (0.0-1.0)
[2018-09-26 09:16] LABS: COLOR,URINE YELLOW
[2018-09-26 12:00] VITALS: BP 139/79
--- NOTE | 2018-09-26 13:49 | Infectious Diseases Prog Note ---
Assessment/Plan Assessment/Plan 1. C.diff. + , sepsis, leukocytosis, fevers, diarrhea - po vancomycin - day # 5/14 - discontinue other antibiotics - monitor diarrhea - monitor labs 2. Anemia. 3. Cirrhosis. 4. Possible diabetes. 5. No history of hypertension. 6. Follow up on blood cultures. 7. Diabetes treatment per primary. 8. The patient is status post EGD. 9. Cirrhosis. 10. esophageal varices Subjective ROS Limited/Unobtainable: No Constitutional: Reports: no symptoms Respiratory: Reports: no symptoms Cardiovascular: Reports: no symptoms Gastrointestinal/Abdominal: Reports: other - loose stool Genitourinary: Reports: frequency Allergies: Coded Allergies: No Known Allergies (Unverified , 09/20/18) Objective Vital Signs Last 24 Hour Vital Signs Date Time Temp Pulse Resp B/P (MAP) Pulse Ox O2 Delivery O2 Flow Rate FiO2 09/26/18 12:00 98.5 67 18 139/79 (99) 96 09/26/18 09:00 Room Air 09/26/18 08:00 98.8 77 19 133/78 (96) 96 09/25/18 21:00 Room Air 09/25/18 20:00 98.8 76 18 135/78 (97) 96 09/25/18 16:00 98.0 73 15 136/89 (105) 95 Height (Feet): 6 Height (Inches): 6.00 Weight (Pounds): 231 General Appearance: no acute distress HEENT: mucous membranes moist Respiratory/Chest: lungs clear Cardiovascular: normal rate Abdomen: soft, non tender Extremities: other - edema of legs Laboratory Tests Test 09/26/18 08:47 Urine Color Yellow Urine Appearance Clear Urine pH 6.5 (4.5-8.0) Urine Specific [place] 1.015 (1.005-1.035) Urine Protein 1+ (NEGATIVE) H Urine Glucose (UA) Negative (NEGATIVE) Urine Ketones Negative (NEGATIVE) Urine Blood 1+ (NEGATIVE) H Urine Nitrite Negative (NEGATIVE) Urine Bilirubin Negative (NEGATIVE) Urine Urobilinogen Normal MG/DL (0.0-1.0) Urine Leukocyte Esterase 1+ (NEGATIVE) H Urine RBC 2-4 /HPF (0 - 0) H Urine WBC 2-4 /HPF (0 - 0) Urine Squamous Epithelial Cells Occasional /LPF Urine Bacteria Few /HPF (NONE) Current Medications Medications (Trade) Dose Ordered Sig/Kaylah Route PRN Reason Start Time Stop Time Status Last Admin Dose Admin Dextrose (Dextrose 50%) 25 ml Q30M PRN IV Hypoglycemia 09/21/18 16:15 10/20/18 22:14 Dextrose (Dextrose 50%) 50 ml Q30M PRN IV Hypoglycemia 09/21/18 16:15 10/20/18 22:14 Diphenhydramine HCl (Benadryl) 25 mg Q12H PRN IVP Itching 09/25/18 12:15 10/25/18 12:14 09/25/18 14:07 Famotidine (Pepcid) 20 mg BID ORAL 09/23/18 18:00 10/23/18 17:59 09/26/18 08:46 Folic Acid (Folate) 1 mg DAILY ORAL 09/22/18 09:00 10/21/18 08:59 09/26/18 08:46 Ondansetron HCl (Zofran) 4 mg Q6H PRN IVP Nausea & Vomiting 09/21/18 16:15 10/20/18 22:14 Thiamine HCl (Vitamin B1) 100 mg DAILY ORAL 09/22/18 09:00 10/21/18 08:59 09/26/18 08:46 Vancomycin HCl (Firvanq) 125 mg FOUR TIMES A DAY ORAL 09/21/18 18:00 09/28/18 12:59 09/26/18 12:57 John Escobar MD Sep 26, 2018 13:49
[2018-09-26 16:00] VITALS: BP 136/76
[2018-09-26 20:00] VITALS: BP 140/88
[2018-09-27] VITALS: BP 113/68
[2018-09-27 04:00] VITALS: BP 136/78
[2018-09-27 08:00] VITALS: BP 138/89
[2018-09-27] MEDS: Thiamine 100mg tab ORAL SCH (08:15)
[2018-09-27] MEDS: Vancomycin oral 125mg/2.5ml ORAL SCH ×4 (08:16→20:52)
--- NOTE | 2018-09-27 10:38 | GI Progress Note ---
Assessment/Plan Problems: (1) Esophageal varices ICD Codes: I85.00 - Esophageal varices without bleeding SNOMED: 28610363 (2) Melena ICD Codes: K92.1 - Melena SNOMED: 5535367 (3) Gastroenteritis ICD Codes: K52.9 - Noninfective gastroenteritis and colitis, unspecified SNOMED: 75122696 (4) Dehydration ICD Codes: E86.0 - Dehydration SNOMED: 99522180 Status: stable Status Narrative Discussed with Dr. Wall Assessment/Plan SUMMARY OF FINDINGS: 1. Esophageal varices, status post banding x7. 2. Gastritis, status post biopsy. 3. Portal hypertensive gastropathy. C. difficile positive RECOMMENDATIONS: Followup pathology. Mild chronic gastritis. Intestinal metaplasia. Negative for H. pylori. Negative for dysplasia or malignancy. okay for DC per GI standpoint The patient will need a repeat endoscopy and banding in 4 to 6 weeks. Advance diet Antibiotics per ID DC PPI follow labs The patient was seen and examined at bedside and all new and available data was reviewed in the patients chart. I agree with the above findings, impression and plan. (Patient seen earlier today. Signature stamp does not reflect patient encounter time.). - Malachi Wall MD Subjective Gastrointestinal/Abdominal: Reports: no symptoms Objective Last 24 Hour Vital Signs Date Time Temp Pulse Resp B/P (MAP) Pulse Ox O2 Delivery O2 Flow Rate FiO2 09/27/18 08:00 99.4 75 19 138/89 (105) 95 09/27/18 04:00 98.2 79 19 136/78 (97) 97 09/27/18 00:00 98.8 73 20 113/68 (83) 95 09/26/18 21:43 98.8 09/26/18 21:00 Room Air 09/26/18 20:00 100.5 79 20 140/88 (105) 96 09/26/18 16:00 99.9 80 19 136/76 (96) 96 09/26/18 12:00 98.5 67 18 139/79 (99) 96 Intake and Output 09/26/18 09/27/18 19:00 07:00 Intake Total 1200 ml 1100 ml Balance 1200 ml 1100 ml Intake Oral 1200 ml 1100 ml # Voids 4 3 # Bowel Movements 1 Height (Feet): 6 Height (Inches): 6.00 Weight (Pounds): 231 General Appearance: WD/WN, no apparent distress, alert Cardiovascular: normal rate Respiratory/Chest: normal breath sounds, no respiratory distress Abdominal Exam: normal bowel sounds, non tender, soft Extremities: normal range of motion, non-tender Neelima Jurado NP Sep 27, 2018 10:38
[2018-09-27 12:00] VITALS: BP 143/89
--- NOTE | 2018-09-27 13:17 | Pulmonology Progress Note ---
Assessment/Plan Assessment/Plan 1. Hypoalbuminemia. 2. Malnutrition. 3. Liver cirrhosis. 4. Diarrhea. 5. Diabetes, questionable. DISCUSSION: Continue antibiotics. Seen by GI. Intravenous fluids. Discontinued lactulose. Has C diff. I will follow carefully. Dc home when diarrhea resolves Subjective Interval Events: Feeling better Constitutional: Reports: no symptoms HEENT: Repors: no symptoms Respiratory: Reports: no symptoms Cardiovascular: Reports: no symptoms Gastrointestinal/Abdominal: Reports: no symptoms Genitourinary: Reports: no symptoms Allergies: Coded Allergies: No Known Allergies (Unverified , 09/20/18) Objective Last 24 Hour Vital Signs Date Time Temp Pulse Resp B/P (MAP) Pulse Ox O2 Delivery O2 Flow Rate FiO2 09/27/18 12:00 100.0 79 19 143/89 (107) 97 09/27/18 09:00 Room Air 09/27/18 08:00 99.4 75 19 138/89 (105) 95 09/27/18 04:00 98.2 79 19 136/78 (97) 97 09/27/18 00:00 98.8 73 20 113/68 (83) 95 09/26/18 21:43 98.8 09/26/18 21:00 Room Air 09/26/18 20:00 100.5 79 20 140/88 (105) 96 09/26/18 16:00 99.9 80 19 136/76 (96) 96 Intake and Output 09/26/18 09/27/18 19:00 07:00 Intake Total 1200 ml 1100 ml Balance 1200 ml 1100 ml Intake Oral 1200 ml 1100 ml # Voids 4 3 # Bowel Movements 1 General Appearance: no acute distress HEENT: normocephalic Respiratory/Chest: chest wall non-tender, lungs clear Cardiovascular: normal peripheral pulses Abdomen: normal bowel sounds, soft, non tender Current Medications Medications (Trade) Dose Ordered Sig/Kaylah Route PRN Reason Start Time Stop Time Status Last Admin Dose Admin Acetaminophen (Tylenol) 650 mg Q6H PRN ORAL Mild Pain/Temp > 100.5 09/26/18 21:00 10/26/18 20:59 09/26/18 21:13 Dextrose (Dextrose 50%) 25 ml Q30M PRN IV Hypoglycemia 09/21/18 16:15 10/20/18 22:14 Dextrose (Dextrose 50%) 50 ml Q30M PRN IV Hypoglycemia 09/21/18 16:15 10/20/18 22:14 Diphenhydramine HCl (Benadryl) 25 mg Q12H PRN IVP Itching 09/25/18 12:15 10/25/18 12:14 09/25/18 14:07 Famotidine (Pepcid) 20 mg BID ORAL 09/23/18 18:00 10/23/18 17:59 09/27/18 08:15 Folic Acid (Folate) 1 mg DAILY ORAL 09/22/18 09:00 10/21/18 08:59 09/27/18 08:16 Ondansetron HCl (Zofran) 4 mg Q6H PRN IVP Nausea & Vomiting 09/21/18 16:15 10/20/18 22:14 Thiamine HCl (Vitamin B1) 100 mg DAILY ORAL 09/22/18 09:00 10/21/18 08:59 09/27/18 08:15 Vancomycin HCl (Firvanq) 125 mg FOUR TIMES A DAY ORAL 09/21/18 18:00 09/28/18 12:59 09/27/18 13:10 Rajesh Myers MD Sep 27, 2018 13:17
[2018-09-27 16:00] VITALS: BP 152/91
[2018-09-27 20:00] VITALS: BP 152/91
[2018-09-28] VITALS: BP 144/84
[2018-09-28 04:00] VITALS: BP 140/79
[2018-09-28 08:00] VITALS: BP 141/82
--- NOTE | 2018-09-28 08:55 | Pulmonology Progress Note ---
Assessment/Plan Assessment/Plan 1. Hypoalbuminemia. 2. Malnutrition. 3. Liver cirrhosis. 4. Diarrhea. 5. Diabetes, questionable. DISCUSSION: DC planning for home today Apparently he has a place to stay Dc home today Subjective Interval Events: None new Constitutional: Reports: no symptoms HEENT: Repors: no symptoms Respiratory: Reports: no symptoms Cardiovascular: Reports: no symptoms Gastrointestinal/Abdominal: Reports: no symptoms Genitourinary: Reports: no symptoms Allergies: Coded Allergies: No Known Allergies (Unverified , 09/20/18) Objective Last 24 Hour Vital Signs Date Time Temp Pulse Resp B/P (MAP) Pulse Ox O2 Delivery O2 Flow Rate FiO2 09/28/18 04:00 99.2 72 17 140/79 (99) 96 09/28/18 00:00 99.4 79 17 144/84 (104) 97 09/27/18 21:00 Room Air 09/27/18 20:00 100.0 76 19 152/91 (111) 98 09/27/18 16:00 99.2 73 18 152/91 (111) 98 09/27/18 12:00 100.0 79 19 143/89 (107) 97 09/27/18 09:00 Room Air Intake and Output 09/27/18 09/28/18 18:59 06:59 Intake Total 480 ml Balance 480 ml Intake Oral 480 ml # Voids 8 General Appearance: no acute distress HEENT: normocephalic Respiratory/Chest: chest wall non-tender, lungs clear Cardiovascular: normal peripheral pulses, normal rate Abdomen: normal bowel sounds, soft, non tender Current Medications Medications (Trade) Dose Ordered Sig/Kaylah Route PRN Reason Start Time Stop Time Status Last Admin Dose Admin Acetaminophen (Tylenol) 650 mg Q6H PRN ORAL Mild Pain/Temp > 100.5 09/26/18 21:00 10/26/18 20:59 09/26/18 21:13 Dextrose (Dextrose 50%) 25 ml Q30M PRN IV Hypoglycemia 09/21/18 16:15 10/20/18 22:14 Dextrose (Dextrose 50%) 50 ml Q30M PRN IV Hypoglycemia 09/21/18 16:15 10/20/18 22:14 Diphenhydramine HCl (Benadryl) 25 mg Q12H PRN IVP Itching 09/25/18 12:15 10/25/18 12:14 09/25/18 14:07 Famotidine (Pepcid) 20 mg BID ORAL 09/23/18 18:00 10/23/18 17:59 09/27/18 17:34 Folic Acid (Folate) 1 mg DAILY ORAL 09/22/18 09:00 10/21/18 08:59 09/27/18 08:16 Ondansetron HCl (Zofran) 4 mg Q6H PRN IVP Nausea & Vomiting 09/21/18 16:15 10/20/18 22:14 Thiamine HCl (Vitamin B1) 100 mg DAILY ORAL 09/22/18 09:00 10/21/18 08:59 09/27/18 08:15 Vancomycin HCl (Firvanq) 125 mg FOUR TIMES A DAY ORAL 09/21/18 18:00 10/04/18 23:59 09/27/18 20:52 Rajesh Myers MD Sep 28, 2018 08:55
[2018-09-28] MEDS: Thiamine 100mg tab ORAL SCH (09:23)
[2018-09-28] MEDS: Vancomycin oral 125mg/2.5ml ORAL SCH ×2 (09:23→13:18)
--- NOTE | 2018-09-28 10:47 | GI Progress Note ---
Assessment/Plan Problems: (1) Esophageal varices ICD Codes: I85.00 - Esophageal varices without bleeding SNOMED: 71450305 (2) Melena ICD Codes: K92.1 - Melena SNOMED: 6286284 (3) Gastroenteritis ICD Codes: K52.9 - Noninfective gastroenteritis and colitis, unspecified SNOMED: 45300861 (4) Dehydration ICD Codes: E86.0 - Dehydration SNOMED: 74737959 Status: stable Status Narrative Discussed with Dr. Wall. Assessment/Plan SUMMARY OF FINDINGS: 1. Esophageal varices, status post banding x7. 2. Gastritis, status post biopsy. 3. Portal hypertensive gastropathy. C. difficile positive RECOMMENDATIONS: Followup pathology. Mild chronic gastritis. Intestinal metaplasia. Negative for H. pylori. Negative for dysplasia or malignancy. okay for DC per GI standpoint, Rx for Vanco placed in chart. The patient will need a repeat endoscopy and banding in 4 to 6 weeks. Advance diet Antibiotics per ID DC PPI follow labs The patient was seen and examined at bedside and all new and available data was reviewed in the patients chart. I agree with the above findings, impression and plan. (Patient seen earlier today. Signature stamp does not reflect patient encounter time.). - Malachi Wall MD Subjective Gastrointestinal/Abdominal: Reports: no symptoms Objective Last 24 Hour Vital Signs Date Time Temp Pulse Resp B/P (MAP) Pulse Ox O2 Delivery O2 Flow Rate FiO2 09/28/18 08:00 99.0 73 20 141/82 (101) 96 09/28/18 04:00 99.2 72 17 140/79 (99) 96 09/28/18 00:00 99.4 79 17 144/84 (104) 97 09/27/18 21:00 Room Air 09/27/18 20:00 100.0 76 19 152/91 (111) 98 09/27/18 16:00 99.2 73 18 152/91 (111) 98 09/27/18 12:00 100.0 79 19 143/89 (107) 97 Intake and Output 09/27/18 09/28/18 18:59 06:59 Intake Total 480 ml Balance 480 ml Intake Oral 480 ml # Voids 8 Height (Feet): 6 Height (Inches): 6.00 Weight (Pounds): 231 General Appearance: WD/WN, no apparent distress, alert Cardiovascular: normal rate Respiratory/Chest: normal breath sounds, no respiratory distress Abdominal Exam: normal bowel sounds, non tender, soft Extremities: normal range of motion, non-tender Neelima Jurado NP Sep 28, 2018 10:47
[2018-09-28 12:00] VITALS: BP 136/81
--- NOTE | 2018-09-28 13:50 | Discharge Instructions ---
Discharge Instructions Discharge Instructions Services at Discharge: day care Diet: 2 GM sodium (low sodium) Resume Normal Activity?: Yes Activity: light activity Follow Up Orders F/U PCP 1 week Complete antibiotic Flagyl For Congestive Heart Failure Reminder Report to your physician any weight gain of 5 pounds or more in one week. Fidel Segundo MD Sep 28, 2018 13:50
--- NOTE | 2018-09-28 14:41 | Infectious Diseases Prog Note ---
Assessment/Plan Assessment/Plan ASSESSMENT AND PLAN: 1. C.diff. + , sepsis, leukocytosis, fevers, diarrhea - po vancomycin - day # 7/14 - diarrhea improved and resolved - patient stable for discharge from ID standpoint. Favor po vancomycin but patient cannot afford and thus will be discharged on po ary, GI service wrote script. - monitor labs - d/w RN 2. Anemia. 3. Cirrhosis. 4. Possible diabetes. 5. No history of hypertension. 6. Follow up on blood cultures. 7. Diabetes treatment per primary. 8. The patient is status post EGD. 9. Cirrhosis. 10. No known drug allergies. 11. Social history is negative. 12. Family history is noncontributory. 13. MAR was noted. 14. Case was discussed with RN. 15. Continue treatment per primary consultants. Subjective Constitutional: Denies: fever HEENT: Denies: congestion Respiratory: Denies: shortness of breath Cardiovascular: Denies: chest pain Gastrointestinal/Abdominal: Reports: other - diarrhea resolved ; Denies: nausea , vomiting, diarrhea Genitourinary: Reports: frequency; Denies: dysuria Psychiatric: Denies: depression Skin: Denies: rash Hematologic: Denies: bleeding Musculoskeletal: Denies: pain Allergies: Coded Allergies: No Known Allergies (Unverified , 09/20/18) Objective Vital Signs Last 24 Hour Vital Signs Date Time Temp Pulse Resp B/P (MAP) Pulse Ox O2 Delivery O2 Flow Rate FiO2 09/28/18 12:00 98.6 69 20 136/81 (99) 97 09/28/18 09:00 Room Air 09/28/18 08:00 99.0 73 20 141/82 (101) 96 09/28/18 04:00 99.2 72 17 140/79 (99) 96 09/28/18 00:00 99.4 79 17 144/84 (104) 97 09/27/18 21:00 Room Air 09/27/18 20:00 100.0 76 19 152/91 (111) 98 09/27/18 16:00 99.2 73 18 152/91 (111) 98 Height (Feet): 6 Height (Inches): 6.00 Weight (Pounds): 231 General Appearance: no acute distress HEENT: normocephalic, atraumatic, anicteric, mucous membranes moist Respiratory/Chest: lungs clear, normal breath sounds, no respiratory distress, no accessory muscle use Cardiovascular: normal rate, regular rhythm, no gallop/murmur, no JVD Abdomen: normal bowel sounds, soft, non tender, no organomegaly, non distended Genitourinary: other - no marr Extremities: no cyanosis, no clubbing Skin: no rash Neurologic/Psychiatric: cue selector II-XII grossly normal, alert, oriented x 3 Lymphatic: no neck adenopathy Musculoskeletal: no effusion Objective Procedure: XRAY Chest 1v Indication: Dyspnea Comparison: None A single view chest radiograph was obtained. Findings: Mild pulmonary vascular congestion suspected. Heart is normal size. Bones are unremarkable. No pleural effusion seen. IMPRESSION: Prominent vascularity. Suspect mild CHF. Correlate clinically Microbiology Date/Time Source Procedure Growth Status 09/22/18 17:15 Blood Blood Culture - Final NO GROWTH AFTER 5 DAYS Complete 09/20/18 18:05 Nasal Nares - Final Complete 09/20/18 18:05 Nasal Nares - Final Complete 09/22/18 21:50 Stool Ova and Parasites - Final Complete 09/22/18 21:50 Stool Ova and Parasite Result 1 - Final Complete c.diff. - + Labs Test 09/26/18 08:47 Urine Color Yellow Urine Appearance Clear Urine pH 6.5 (4.5-8.0) Urine Specific [place] 1.015 (1.005-1.035) Urine Protein 1+ (NEGATIVE) Urine Glucose (UA) Negative (NEGATIVE) Urine Ketones Negative (NEGATIVE) Urine Blood 1+ (NEGATIVE) Urine Nitrite Negative (NEGATIVE) Urine Bilirubin Negative (NEGATIVE) Urine Urobilinogen Normal MG/DL (0.0-1.0) Urine Leukocyte Esterase 1+ (NEGATIVE) Urine RBC 2-4 /HPF (0 - 0) Urine WBC 2-4 /HPF (0 - 0) Urine Squamous Epithelial Cells Occasional /LPF Urine Bacteria Few /HPF (NONE) labs - noted Current Medications Medications (Trade) Dose Ordered Sig/Kaylah Route PRN Reason Start Time Stop Time Status Last Admin Dose Admin Acetaminophen (Tylenol) 650 mg Q6H PRN ORAL Mild Pain/Temp > 100.5 09/26/18 21:00 10/26/18 20:59 09/26/18 21:13 Dextrose (Dextrose 50%) 25 ml Q30M PRN IV Hypoglycemia 09/21/18 16:15 10/20/18 22:14 Dextrose (Dextrose 50%) 50 ml Q30M PRN IV Hypoglycemia 09/21/18 16:15 10/20/18 22:14 Diphenhydramine HCl (Benadryl) 25 mg Q12H PRN IVP Itching 09/25/18 12:15 10/25/18 12:14 09/25/18 14:07 Famotidine (Pepcid) 20 mg BID ORAL 09/23/18 18:00 10/23/18 17:59 09/28/18 09:23 Folic Acid (Folate) 1 mg DAILY ORAL 09/22/18 09:00 10/21/18 08:59 09/28/18 09:23 Ondansetron HCl (Zofran) 4 mg Q6H PRN IVP Nausea & Vomiting 09/21/18 16:15 10/20/18 22:14 Thiamine HCl (Vitamin B1) 100 mg DAILY ORAL 09/22/18 09:00 10/21/18 08:59 09/28/18 09:23 Vancomycin HCl (Firvanq) 125 mg FOUR TIMES A DAY ORAL 09/21/18 18:00 10/04/18 23:59 09/28/18 13:18 Lisha Aguirre MD Sep 28, 2018 14:41
[2018-09-28] MEDS ORDERED: METFORMIN HCL500 M1 ORAL (14:53)
[2018-09-28] MEDS ORDERED: ZESTRIL10 M1 ORAL (14:53)
[2018-09-28] MEDS ORDERED: FUROSEMIDE20 M1 ORAL (14:53)
[2018-09-28] MEDS ORDERED: METRONIDAZOLE500 MG ORAL (15:22)
[2018-09-28 16:00] VITALS: BP 126/74
--- NOTE | 2018-09-29 15:55 | Discharge Summary ---
Discharge Summary Discharge Summary _ DATE OF ADMISSION: 09/20/2018 DATE OF DISCHARGE: 09/28/2018 DISCHARGED BY: . Dr. Myers REASON FOR ADMISSION: 63 years old male with past medical history of diabetes mellitus, liver cirrhosis, secondary to alcohol abuse, presented to emergency department with complaint of diarrhea for 3 days. Patient reported generalized weakness. Patient reported that he stopped drinking alcohol He denied chest pain or shortness of breath. Upon evaluation patient had low-grade fever. Laboratory work-up revealed sodium 130, stable renal parameters. CBC revealed leukocytosis with WBC 12.8, hemoglobin 14.2, platelet count 80. INR 1.4. Lactic acid 4.1 9. Glucose 110. Total bilirubin 4.0 Direct bilirubin 1.2 AST 192, ALT 192 Troponin negative. EKG revealed sinus rhythm, no acute ischemic changes. Albumin 3.1. Chest x-ray demonstrated prominent vascularity. Suspicion of mild CHF. Patient subsequently admitted for further management CONSULTANTS: ID specialist GI specialist Dr. Wall press smith helper Dr. Segundo HOSPITAL COURSE: Patient admitted to medical surgical floor and started on empiric antibiotic. Patient also prophylactically started on oral vancomycin to cover for C. difficile colitis. Patient started on IV hydration and was kept n.p.o. Lactulose was held. Blood culture were negative Stool for C. difficile was positive.. Stool culture was negative. Repeated blood culture were negative. Stool for ova and parasite was negative. Antibiotic switch to oral vancomycin as per ID specialist recommendation. Diarrhea improved. Patient required total 14 days of vancomycin as per ID specialist. ID specialist favored oral vancomycin , however patient could not afford and therefore was discharged on oral Flagyl , prescription provided. T GI specialist followed. Abdominal ultrasound revealed cholelithiasis with bladder wall thickening, probably secondary to hemodynamic derangement related to hepatocellular disease. Evidence of hepatic cirrhosis with coarse echogenicity and surface nodularity, possibility of acute cholecystitis should be considered. Patient undergone upper endoscopy with biopsy and was found to have esophageal varices, status post banding x7, gastritis status post biopsy and portal hypertensive gastropathy. Biopsy of stomach antrum revealed mild chronic gastritis and reactive changes, intestinal metaplasia. It was negative for Helicobacter and dysplasia or malignancy. Patient started on clear liquid, diet was advanced as tolerated. Patient was recommended to repeat endoscopy and banding in 4 to 6 weeks. Patient able to tolerate diet. GI prophylaxis provided. Small Animal Caretaker closely followed. Patient was on the IV hydration. Electrolytes corrected as needed /magnesium, phosphorus, and potassium. Hyponatremia was likely due to cirrhosis and resolved. Prior to discharge all electrolytes stable :sodium 138, potassium 3.5. Hemoglobin and hematocrit were closely monitored with goal to keep hemoglobin above 7. Anemia was very mild. Stool for occult blood was negative. Prior to discharge hemoglobin 13.6 , hematocrit 38.4. Platelet count remained low , but increased from the initial count . Thrombocytopenia and coagulopathy were due to liver cirrhosis. Nutritional recommendation implemented in plan of care. Supportive care provided. Patient was counseled to continue abstinence from alcohol. Bilirubin trending down : total from initial 4 down to 1.7, direct from initial 1.2 down to 0.7 . AST from 192 down to 74 , ALT from 192 down to 88. CEA with mild elevation 5.9 . Folic acid low . Patient started on folate and thiamine replacement. Patient clinically stabilized and was ready for discharge home. FINAL DIAGNOSES: Sepsis C. difficile infection Dehydration -resolved Liver cirrhosis Esophageal varices, status post banding x7 Gastritis, status post biopsy Portal hypertensive gastropathy Melena Hyponatremia , secondary to cirrhosis -resolved Hypokalemia- resolved Anemia Hyperglycemia Malnutrition Hypoalbuminemia DISCHARGE MEDICATIONS: See Medication Reconciliation list. DISCHARGE INSTRUCTIONS: Patient was discharged home . Follow up with primary care provider in one week. I have been assigned to dictate discharge summary for this account. I was not involved in the patient's management. Gin Hathaway NP Sep 29, 2018 15:55
== END 2018-09-28 16:20 | disposition home or self-care (01) | DRG 720 ==
LOC: EDBD 17:44 → EMR 18:25 → EDBEDREQ 19:26 → EDBEDREQSVC 20:24 → EDBEDREQ 20:24 → 2W 20:56 → UNDODISIN 21:11 → 4E 09-21 16:41
PROC: 0DB78ZX Excision of Stomach, Pylorus, Via Natural or Artificial Opening Endoscopic, Diagnostic (ICD-10-PCS; principal; 2018-09-22 08:07)
PROC: 06L38CZ Occlusion of Esophageal Vein with Extraluminal Device, Via Natural or Artificial Opening Endoscopic (ICD-10-PCS; 2018-09-22 08:07)
DX: A41.9 Sepsis, unspecified organism (principal); I85.10 Secondary esophageal varices without bleeding; E46 Unspecified protein-calorie malnutrition; A04.72 Enterocolitis due to Clostridium difficile, not specified as recurrent; K76.6 Portal hypertension; E87.1 Hypo-osmolality and hyponatremia; E83.42 Hypomagnesemia; E83.39 Other disorders of phosphorus metabolism; A09 Infectious gastroenteritis and colitis, unspecified; K92.1 Melena; K31.89 Other diseases of stomach and duodenum; K74.60 Unspecified cirrhosis of liver; E86.0 Dehydration; K29.70 Gastritis, unspecified, without bleeding; K80.20 Calculus of gallbladder without cholecystitis without obstruction; D64.9 Anemia, unspecified; E11.9 Type 2 diabetes mellitus without complications; Z59.0 Homelessness
CPT/HCPCS: 36415; 71045; 76700; 80048; 80053; 80202; 81003; 82248; 82270; 82378; 82550; 82553; 82607; 82728; 82746; 83540; 83550; 83605; 83735; 84100; 84439; 84443; 84484; 85007; 85025; 85044; 85610; 85730; 86710; 87040; 87045; 87324; 93005; 94003; 94150; 96361; 96365; 99285; J2405; J8499